=== PATIENT | male | born 1940 | race Caucasian/White ===

== ENCOUNTER 2017-02-28 23:45 | Inpatient (IN) | payer MEDICARE, OTHER ==
--- NOTE | 2017-03-01 00:02 | ER Document Report ---
ED Neuro Symptoms/Deficit - General Chief Complaint: Altered Mental Status Stated Complaint: ALTERED MENTAL STATUS Time seen by provider: 00:02 Mode of Arrival: Medic Information source: Relative, Emergency Med Personnel - HPI Patient complains to provider of: Difficulty standing, Difficulty walking, Falling, Speech Impairment Onset: Just prior to arrival Awoke with symptoms: No Symptoms are: Constant Duration: Continues in ED Baseline Cognitive: Alert, oriented X 3 Baseline Gait: Walks w/o assistance New weakness: RUE, RLE Decreased ability to stand/walk: Cannot walk Impaired speech/swallowing: Unable Similar symptoms previously: No Recently seen / treated by doctor: No Notes: Patient is a 76-year-old female who was brought to the emergency room by EMS, the initial call was reported that patient had 3 falls throughout the day today , and is now confused and unable to answer questions appropriately, however on my initial evaluation patient has expressive aphasia, and weakness in his right upper extremity and right lower extremity, he is unable to answer any questions appropriately, but his son and at bedside report that besides having 3 falls throughout the day he otherwise had a fairly normal day, he does fall on occasion so they did not think this was anything out of the ordinary for him - Related Data Allergies/Adverse Reactions: No Known Allergies Allergy (Unverified 10/30/11 11:21) Past Medical History - General Information source: Relative - Social History Smoking Status: Former Smoker Family History: Reviewed & Not Pertinent - Past Medical History Cardiac Medical History: Reports: Hx Hypertension - MEDICATED Denies: Hx Heart Attack Pulmonary Medical History: Reports: Hx Asthma Neurological Medical History: Denies: Hx Cerebrovascular Accident, Hx Seizures GI Medical History: Denies: Hx Hepatitis, Hx Hiatal Hernia, Hx Ulcer Infectious Medical History: Denies: Hx Hepatitis Past Surgical History: Reports: Hx Open Heart Surgery - CABGX2. Denies: Hx Pacemaker Review of Systems - Review of Systems -: Yes ROS unobtainable due to patient's medical condition Constitutional: No symptoms reported EENT: No symptoms reported Cardiovascular: No symptoms reported Respiratory: No symptoms reported Gastrointestinal: No symptoms reported Genitourinary: No symptoms reported Male Genitourinary: No symptoms reported Musculoskeletal: No symptoms reported Skin: No symptoms reported Hematologic/Lymphatic: No symptoms reported Neurological/Psychological: See HPI -: Yes All other systems reviewed and negative Physical Exam - Vital signs Vitals: Resp Pulse Ox 28 H 93 02/28/17 23:49 02/28/17 23:49 Interpretation: Hypertensive - General General appearance: Alert - HEENT Head: Normocephalic, Atraumatic Eyes: Normal Cornea: Normal Extraocular movements intact: Yes Eyelashes: Normal Pupils: PERRL Mucous membranes: Normal Pharynx: Normal - Respiratory Respiratory status: No respiratory distress Chest status: Nontender Breath sounds: Normal Chest palpation: Normal - Cardiovascular Rhythm: Regular, Tachycardia Heart sounds: Normal auscultation - Abdominal Inspection: Normal Distension: No distension Bowel sounds: Normal Tenderness: Nontender Organomegaly: No organomegaly - Back Back: Normal - Extremities General upper extremity: Other - Multiple ecchymosis, left elbow with small abrasions General lower extremity: Normal inspection - Neurological Cognition: Confused Endeavor Coma Scale Eye Opening: Spontaneous [place]deavor Coma Scale Verbal: Inappropriate Ka[place] Coma Scale Motor: Withdraws to Pain Endeavor Coma Scale Total: 11 Speech: Expressive aphasia Motor strength normal: No: RUE, RLE Additional motor exam normals: Pronator drift - Rectal - Skin Skin Temperature: Warm Skin Moisture: Dry Skin Color: Normal Course - Re-evaluation Re-evalutation: 03/01/17 01:29 Patient was discussed with neurologist at [facility], Dr. 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 Miramontes has accepted patient to his service, and he is first on the waiting list to get up at - Vital Signs Vital signs: Temp Pulse Resp BP Pulse Ox 79 22 H 160/79 H 92 03/01/17 02:45 03/01/17 02:45 03/01/17 02:45 03/01/17 02:45 - Laboratory Result Diagrams: 02/28/17 23:50 02/28/17 23:50 Laboratory results interpreted by me: 02/28/17 02/28/17 23:50 23:50 WBC 18.9 H RDW 14.4 H Seg Neuts % (Manual) 89 H Band Neutrophils % 2 L Lymphocytes % (Manual) 2 L Abs Neuts (Manual) 17.2 H Abs Lymphs (Manual) 0.4 L Glucose 239 H ALT 16 L Creatine Kinase 200 H - Diagnostic Test Radiology reviewed: Image reviewed, Reports reviewed - EKG Interpretation by Me EKG shows normal: Sinus rhythm Rate: Normal Rhythm: NSR Critical Care Note - Critical Care Note Total time excluding time spent on procedures (mins): 60 Comments: Patient with signs and symptoms consistent with acute CVA, requiring close observation, multiple re-evaluations, consultation with specialist at tertiary care facility and transfer to tertiary care physician Discharge - Discharge Clinical Impression: Acute CVA (cerebrovascular accident) Referrals: YESI KIMBROUGH, [Primary Care Provider] - Follow up as needed ED [employer]/Exc Criteria - Inclusion Criteria: 1: Patient presented to ED within 3 hours of acute ischemic stroke symptom onset ? -: Yes 2: Did baseline CT exclude intracranial hemorrhage and/or other risk factors? -: No 3: Is the age of the patient 18 years of age or greater? -: Yes : If any of the above questions are answered "NO" then stop, patient is not a candidate for Alteplase, : If all of the above questions are answered "YES" then continue with Exclusion Criteria. - Exclusion Criteria: 1: Is there evidence of intracranial hemorrhage on baseline CT? -: Yes 2: Is there suspicion of subarachnoid hemorrhage (even if CT negative)? 3: Is there a history of serious head trauma, recent previous stroke or VA within 3 months? 4: Does the patient have a clinical presentation consistent with VA or post-VA pericarditis? 5: Is there history of intracranial hemorrhage? 6: On repeated measurement is Systolic BP greater than 185mmHg or Diastolic BP greater that 110 mmHg and is aggressive treatment needed to reduce blood pressure to these limits (e.g. constant infusion of an anti-hypertensive)? 7: Did the patient awake with stroke symptoms? 8: Has the patient had a lumbar puncture or an arterial puncture at a non- compressile site within 7 days? 9: With in the last 14 days did the patient have surgery or major trauma? 10: Is the patient or less than 2 weeks? 11: Was there any active bleeding or acute trauma? 12: Does the patient have intracranial neoplasm, arteriovenous malformation or aneurysm? 13: Does the patient have abnormal glucose (less than 50 or greater than 400mg/ dl)? Record glucose in Comment. 14: Patient has rapidly improving symptoms at the time Alteplase is to be Administered. 15: Does the patient have any risks for bleeding, including but not limited to: a.: Current use of Coumadin with PT greater than 15 seconds or INR greater than 1.7. b.: Current use of Pradaxa (Dabigatran). c.: Heparin administereed within the past 48 hours and PTT elevated. d.: Platelet count less than 100,000/mm. e.: Major surgery or serious trauma within 14 days. f.: Gastrointestinal or gynecological urinary bleeding within 14 days. g.: Myocardial Infarction (VA) within 3 months. : If the answer to any of the above questions is "YES" then stop, the patient is not a candidate for Alteplase. : If the answer to all of the above questions is "NO" then the patient may be eligible for the Administration of Alteplase. : If the patient is noted to have seizure activity at onset of Stroke symptoms; Consult Neurologist for further evaluation. - The patient is: -: Included and is eligible to receive Alteplase. *Initiate bed placement at higher level of care* --: No Reviewd risks & benefits of thrombolytic therapy: I have reviewed the risks and benefits of thrombolytic therapy with the patient and/or his/her family. -: Excluded and not eligible to receive Alteplase for the above exclusions. -: Excluded and not eligible to receive Alteplase for other reasons (specify in comments): --: Yes - chronic appearing subdural hematoma - Diagnosis of TIA: -: Patient presented with transient symptoms that are now resolved and no other neurologic findings are currently present. List symptoms in comments. -: Patient is NOT a candidate for tPA. -: ____(put name in comment) has been consulted for admission and continued evaluation of risk factor assessment.
[2017-03-01 00:10] LABS: PARTIAL THROMBOPLASTIN TIME 29.3 SEC (23.5-35.8)
[2017-03-01 00:11] LABS: HEMATOCRIT 46.2 % (37.9-51.0); HEMOGLOBIN 15.3 g/dL (13.5-17.0); HGB HCT DIFFERENCE -0.3; MEAN CORPUSCULAR HEMOGLOBIN 27.7 pg (27.0-33.4); MEAN CORPUSCULAR HGB CONC 33.1 g/dL (32.0-36.0); MEAN CORPUSCULAR VOLUME 84 fl (80-97); RED BLOOD COUNT 5.53 10^6/uL (4.35-5.55); RED CELL DISTRIBUTION WIDTH 14.4 % (11.5-14.0); WHITE BLOOD COUNT 18.9 10^3/uL (4.0-10.5)
[2017-03-01 00:13] LABS: PROTHROMBIN TIME 13.6 SEC (11.4-15.4)
[2017-03-01 00:28] LABS: BAND NEUTROPHILS % (MANUAL) 2 % (3-5); BASOPHILS % (MANUAL) 0 % (0-2); EOSINOPHILS % (MANUAL) 1 % (0-6); LYMPHOCYTES % (MANUAL) 2 % (13-45); TOTAL CELLS COUNTED 100
[2017-03-01 00:29] LABS: RBC MORPHOLOGY COMMENT NORMO-CYTIC/CHROMIC; TOXIC GRANULATION SLIGHT; TOXIC VACUOLATION PRESENT
[2017-03-01 00:31] LABS: ALANINE AMINOTRANSFERASE 16 U/L (21-72); ALBUMIN 4.4 g/dL (3.5-5.0); ALKALINE PHOSPHATASE 87 U/L (38-126); ANION GAP 16 (5-19); ASPARTATE AMINO TRANSFERASE 28 U/L (17-59); BILIRUBIN,DIRECT 0.3 mg/dL (0.0-0.4); BILIRUBIN,TOTAL 0.8 mg/dL (0.2-1.3); BLOOD UREA NITROGEN 17 mg/dL (7-20); CALCIUM 9.9 mg/dL (8.4-10.2); CARBON DIOXIDE 22 mmol/L (22-30); CHLORIDE 104 mmol/L (98-107); CREATINE KINASE 200 U/L (55-170); CREATININE RESULT 0.99 mg/dL (0.52-1.25); GLUCOSE 239 mg/dL (75-110); POTASSIUM 4.1 mmol/L (3.6-5.0); SODIUM 141.8 mmol/L (137-145)
[2017-03-01 00:43] LABS: CREATINE KINASE MB 1.15 ng/mL (<4.55)
[2017-03-01 00:44] LABS: TROPONIN I < 0.012 ng/mL
[2017-03-01] MEDS ORDERED: ASPIRIN 81 MG TABLET, CHEWABLE PO ONE (01:26)
--- NOTE | 2017-03-01 09:43 | EKG REPORT ---
SEVERITY:- BORDERLINE ECG - SINUS RHYTHM BORDERLINE PROLONGED QT INTERVAL NONSPECIFIC T WAVE CHANGES : Confirmed by: Samuel Crowder 01-Mar-2017 09:42:22
[2017-03-01] MEDS ORDERED: NORMAL SALINE 1000 ML 1,000 ML IV ONE (11:11)
[2017-03-01 11:25] LABS: APPEARANCE,URINE CLEAR; BILIRUBIN,URINE NEGATIVE (NEGATIVE); GLUCOSE, URINE 50 mg/dL (NEGATIVE); KETONES,URINE TRACE mg/dL (NEGATIVE); LEUKOCYTE ESTERASE,URINE NEGATIVE (NEGATIVE); NITRITE,URINE NEGATIVE (NEGATIVE); PROTEIN,URINE 30 mg/dL (NEGATIVE); UROBILINOGEN,URINE NEGATIVE mg/dL (<2.0)
[2017-03-01] MEDS ORDERED: ONDANSETRON HCL INJ/PF 4 MG/2 ML SDV IV PRN (12:12)
[2017-03-01] MEDS ORDERED: NORMAL SALINE 1000 ML 1,000 ML IV PRN (12:12)
[2017-03-01] MEDS ORDERED: ONDANSETRON 4 MG TAB.RAPDIS PO PRN (12:12)
[2017-03-01] MEDS ORDERED: GLUCAGON,HUMAN RECOMB 1 MG INJ IM PRN (12:22)
[2017-03-01] MEDS ORDERED: DEXTROSE 40% GEL 15 GM TUBE PO PRN ×2 (12:22)
[2017-03-01] MEDS ORDERED: DEXTROSE 50%-WATER 25 GM/50 ML DISP.SYRIN IV PRN ×2 (12:22)
[2017-03-01] MEDS ORDERED: (PENDING PHARMACY ID) (Rosuvastatin Calcium [Crestor 20 Mg Tablet] 20 MG) PO SCH (12:30)
--- NOTE | 2017-03-01 12:50 | PDOC H&P ---
History of Present Illness Admission Date/PCP: 03/01/17 12:05 YESI KIMBROUGH DO Patient complains of: falling and right-sided weakness. History of Present Illness: JANIE BRYSON is a 76 year old male with history of coronary artery disease and hypertension who presented after having several falls. The patient is Parkinson 's disease and difficulty ambulating and he fell 3 times yesterday. The patient 's brought him into the hospital via EMS when he was having problems with right-sided weakness after the third fall. The patient had a head CT and there was concern that this represented a subdural hematoma and the patient was going to be transferred to [facility]. No beds were available items so the patient had an MRI here and it showed no evidence for subdural bleeding however did show an acute ischemic CVA. The patient has expressive aphasia and right-sided weakness. He is unable to answer any questions for me. He is unable to move his right side at all. Patient's son is at the bedside and gives the history for the patient. Past Medical History Cardiac Medical History: Reports: Coronary Artery Disease, Hyperlipidema, Hypertension - MEDICATED Denies: Myocardial Infarction Pulmonary Medical History: Reports: Asthma, Chronic Obstructive Pulmonary Disease (COPD) EENT Medical History: Reports: Cataracts Neurological Medical History: Reports: Other - Parkinson's disease Denies: Seizures Endocrine Medical History: Reports: Diabetes Mellitus Type 2 Renal/ Medical History: Reports: None Malignancy Medical History: Reports: Other - Prostate cancer status post radiation therapy. GI Medical History: Denies: Hepatitis, Hiatal Hernia Hematology: Reports: None Denies: Anemia, Sickle Cell Disease Infectious Medical History: Reports: None Past Surgical History Past Surgical History: Reports: Coronary Artery Bypass Graft Denies: Pacemaker Social History Information Source: Relative Lives with: Spouse/Significant other Smoking Status: Former Smoker Frequency of Alcohol Use: None Hx Recreational Drug Use: No Drugs: None Family History Family History: No history of coronary artery disease Parental Family History Reviewed: Yes Children Family History Reviewed: No Sibling(s) Family History Reviewed.: No Medication/Allergy Home Medications: Amitriptyline HCl [Elavil 10 Mg Tablet] 10 mg PO BID 03/01/17 Carbidopa/Levodopa [Sinemet 25-100 mg Tablet] 1 tab PO TID 03/01/17 Gemfibrozil [Lopid 600 mg Tablet] 600 mg PO BIDBS 03/01/17 Glimepiride [Amaryl] 4 mg PO BIDBS 03/01/17 Metformin HCl [Glucophage] 1,000 mg PO BIDBS 03/01/17 Rosuvastatin Calcium [Crestor 20 mg Tablet] 20 mg PO SUWEFR 03/01/17 Sitagliptin Phosphate [Januvia] 100 mg PO DAILY 03/01/17 Tolterodine Tartrate [Detrol La] 4 mg PO DAILY 03/01/17 Allergies/Adverse Reactions: No Known Allergies Allergy (Verified 03/01/17 10:37) Review of Systems ROS unobtainable: Due to mental status Physical Exam Vital Signs: Temp Pulse Resp BP Pulse Ox 97.6 F 86 20 174/48 H 93 03/01/17 09:31 03/01/17 09:32 03/01/17 12:00 03/01/17 11:34 03/01/17 12:00 General appearance: PRESENT: no acute distress Head exam: PRESENT: atraumatic, normocephalic Eye exam: PRESENT: conjunctiva pink, EOMI, PERRLA. ABSENT: scleral icterus Ear exam: PRESENT: normal external ear exam Mouth exam: PRESENT: moist, tongue midline Neck exam: ABSENT: carotid bruit, JVD, lymphadenopathy, thyromegaly Respiratory exam: PRESENT: clear to auscultation jim. ABSENT: rales, rhonchi, wheezes Cardiovascular exam: PRESENT: RRR. ABSENT: diastolic murmur, rubs, systolic murmur Pulses: PRESENT: normal dorsalis pedis pul Vascular exam: PRESENT: normal capillary refill GI/Abdominal exam: PRESENT: normal bowel sounds, soft. ABSENT: distended, guarding, mass, organolmegaly, rebound, tenderness Rectal exam: PRESENT: deferred Extremities exam: ABSENT: calf tenderness, clubbing, pedal edema Neurological exam: PRESENT: altered, aphasic, other - Patient's right upper and lower extremity are flaccid. He has expressive aphasia. He will follow commands. He does appear to have right-sided neglect. Psychiatric exam: PRESENT: flat affect Skin exam: PRESENT: dry, intact, warm. ABSENT: cyanosis, rash Results Impressions: Head CT 02/28/17 23:49 IMPRESSION: 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 Consider MRI correlation. Chest X-Ray 02/28/17 23:57 IMPRESSION: Small bibasilar atelectasis or scar. Brain MRI with MRA 03/01/17 04:29 IMPRESSION: No MR evidence of pathologic subdural collection. Prominent sulci and sylvian fissures, over the bifrontal and biparietal regions. Early subacute infarct in the left hemisphere, watershed distribution with minimal surface petechial staining. Unremarkable [place]. Findings discussed with Dr. Potts in the emergency room Head MRI 03/01/17 04:29 IMPRESSION: No MR evidence of pathologic subdural collection. Prominent sulci and sylvian fissures, over the bifrontal and biparietal regions. Early subacute infarct in the left hemisphere, watershed distribution with minimal surface petechial staining. Unremarkable [place]. Findings discussed with Dr. Potts in the emergency room Assessment & Plan - Diagnosis (1) Acute CVA (cerebrovascular accident) Is this a current diagnosis for this admission?: YesPlan: A she was initially thought to have a subdural bleed on CT scan. MRI shows this to be an acute CVA. Patient will be admitted and start physical and occupational therapy. Will obtain echocardiogram and carotid Dopplers evaluation. Patient will be started on aspirin. Patient according to the son has been on blood thinners because of history of DVT. The will be bringing the med list with her. He most likely will need long-term rehabilitation given his right-sided hemiparesis. (2) DVT (deep venous thrombosis) Is this a current diagnosis for this admission?: YesPlan: Patient has a history of DVT and cortisone has been on blood thinner. He has normal coagulation studies and awaiting to find out what he does take for blood thinner. (3) COPD (chronic obstructive pulmonary disease) Is this a current diagnosis for this admission?: YesPlan: We'll give nebulizers as needed. (4) Parkinsons disease Is this a current diagnosis for this admission?: Yes (5) Hypertension Is this a current diagnosis for this admission?: Yes (6) Diabetes mellitus Is this a current diagnosis for this admission?: YesPlan: We'll hold the oral agents and cover with sliding scale insulin. (7) Coronary artery disease Is this a current diagnosis for this admission?: Yes (8) Melanoma Is this a current diagnosis for this admission?: YesPlan: he has a history of melanoma and has had a large excision on his left forearm. (9) Prostate cancer Is this a current diagnosis for this admission?: YesPlan: Patient has a history of having radiation therapy. - Time Time Spent: 50 to 70 Minutes - Inpatient Certification Medical Necessity: Need for Neurological Checks
[2017-03-01] MEDS ORDERED: SITAGLIPTIN PHOSPHATE 50 MG TABLET PO ONE (15:00)
[2017-03-01] MEDS: CARBIDOPA/LEVODOPA 25-100 MG TABLET PO SCH ×2 (15:04→22:11)
[2017-03-01] MEDS: GEMFIBROZIL 600 MG TABLET PO SCH (18:30)
[2017-03-01] MEDS: TOLTERODINE TARTRATE 1 MG TABLET PO SCH (18:30)
--- NOTE | 2017-03-01 19:34 | XCELERA REPORT ---
[address] [address] Transthoracic Echocardiogram Report Name: JANIE BRYSON Age: 76 yrs Gender: Male : 1940 Patient Status: Inpatient Patient Location: [id number]\S\315\S\A Study Date: 03/01/2017 02:03 PM Procedure: A complete two-dimensional transthoracic echocardiogram was performed (2D, M-mode, spectral and color flow Doppler). The study was technically difficult with many images being suboptimal in quality. Reason For Study: acute cva Ordering Physician: FADY AHUMADA Performed By: Gregg Khoury Interpretation Summary The study was technically difficult with many images being suboptimal in quality. The left ventricular ejection fraction is within normal limits. There is mild concentric left ventricular hypertrophy. Doppler measurements suggest pseudonormalized left ventricular relaxation, which is associated with grade II/IV or mild to moderate diastolic dysfunction The left ventricle is grossly normal size. Regional wall motion abnormalities cannot be excluded due to limited visualization. The right ventricle is grossly normal size. The right ventricular systolic function is normal. The left atrial size is normal. The right atrium is normal. There is a trace amount of mitral regurgitation There is no mitral valve stenosis. There is no aortic valve stenosis No aortic regurgitation is present. There is a trace or physiologic amount of tricuspid regurgitation Tricuspid regurgitation jet envelope not well defined to measure RV systolic pressure accurately. The aortic root is not well visualized. The inferior vena cava was not well visualized There is no pericardial effusion. No definite cardiac source of CVA/TIA noted on this particular trans- thoracic study. Consider SHAILESH if clinically indicated. May consider mobile cardiac telemetry monitoring (MCT) for ruling out transient AFIB. MMode/2D Measurements \T\ Calculations RVDd: 2.3 cm LVIDd: 5.2 cm FS: 31.8 % Ao root diam: 3.4 cm IVSd: 0.95 cm LVIDs: 3.6 cm EDV(Teich): 130.8 ml Ao root area: 9.3 cm2 LVPWd: 1.0 cm ESV(Teich): 53.0 ml LA dimension: 4.0 cm EF(Teich): 59.5 % Doppler Measurements \T\ Calculations MV E max anthony: MV P1/2t max anthony: Ao V2 max: LV V1 max P.0 cm/sec 55.1 cm/sec 91.1 cm/sec 1.8 mmHg MV A max anthony: MV P1/2t: 57.5 msec Ao max PG: LV V1 max: 79.8 cm/sec MVA(P1/2t): 3.8 cm2 3.3 mmHg 66.3 cm/sec MV E/A: 0.68 MV dec slope: 280.8 cm/sec2 PA V2 max: TR max anthony: RAP systole: 64.7 cm/sec 222.1 cm/sec 10.0 mmHg PA max PG: TR max P.8 mmHg 1.7 mmHg RVSP(TR): 29.8 mmHg Left Ventricle The left ventricle is grossly normal size. There is mild concentric left ventricular hypertrophy. The left ventricular ejection fraction is within normal limits. Doppler measurements suggest pseudonormalized left ventricular relaxation, which is associated with grade II/IV or mild to moderate diastolic dysfunction. Regional wall motion abnormalities cannot be excluded due to limited visualization. Right Ventricle The right ventricle is grossly normal size. The right ventricular systolic function is normal. Atria The right atrium is normal. The left atrial size is normal. Interarterial septum not well visualized and not well dopplered. Cannot comment on ASD/PFO presence. Mitral Valve The mitral valve leaflets are sclerotic, but show no functional abnormalities. There is no mitral valve stenosis. There is a trace amount of mitral regurgitation. Aortic Valve The aortic valve is not well visualized secondary to technical limitations. There is no aortic valve stenosis. No aortic regurgitation is present. Tricuspid Valve The tricuspid valve is not well visualized, but is grossly normal. There is no tricuspid stenosis. There is a trace or physiologic amount of tricuspid regurgitation. Tricuspid regurgitation jet envelope not well defined to measure RV systolic pressure accurately. Pulmonic Valve The pulmonic valve is not well visualized. Great Vessels The aortic root is not well visualized. The inferior vena cava was not well visualized. Effusions There is no pericardial effusion. Incidental Findings No definite cardiac source of CVA/TIA noted on this particular trans- thoracic study. Consider SHAILESH if clinically indicated. May consider mobile cardiac telemetry monitoring (MCT) for ruling out transient AFIB. : FADY AHUMADA > Samuel Crowder
[2017-03-01] MEDS: AMITRIPTYLINE HCL 10 MG TABLET PO SCH (22:11)
[2017-03-01] MEDS: FAMOTIDINE INJ/PF 20 MG/2 ML SDV IV SCH (22:12)
[2017-03-01] MEDS: ATORVASTATIN CALCIUM 20 MG TABLET PO SCH (22:12)
[2017-03-02 05:08] LABS: HEMATOCRIT 42.1 % (37.9-51.0); HEMOGLOBIN 13.9 g/dL (13.5-17.0); HGB HCT DIFFERENCE -0.4; MEAN CORPUSCULAR HEMOGLOBIN 27.6 pg (27.0-33.4); MEAN CORPUSCULAR VOLUME 84 fl (80-97); RED BLOOD COUNT 5.03 10^6/uL (4.35-5.55); RED CELL DISTRIBUTION WIDTH 14.2 % (11.5-14.0); WHITE BLOOD COUNT 9.3 10^3/uL (4.0-10.5)
[2017-03-02 05:14] LABS: PROTHROMBIN TIME 14.3 SEC (11.4-15.4)
[2017-03-02 05:26] LABS: ANION GAP 13 (5-19); BLOOD UREA NITROGEN 14 mg/dL (7-20); CALCIUM 9.3 mg/dL (8.4-10.2); CARBON DIOXIDE 20 mmol/L (22-30); CHLORIDE 110 mmol/L (98-107); CREATININE RESULT 0.85 mg/dL (0.52-1.25); GLUCOSE 153 mg/dL (75-110); SODIUM 143.3 mmol/L (137-145)
[2017-03-02] MEDS: CARBIDOPA/LEVODOPA 25-100 MG TABLET PO SCH ×3 (05:50→22:20)
[2017-03-02] MEDS: TOLTERODINE TARTRATE 1 MG TABLET PO SCH ×2 (05:50→17:58)
[2017-03-02] MEDS ORDERED: (PENDING PHARMACY ID) (Warfarin Sodium 4 MG) PO SCH (07:45)
[2017-03-02] MEDS ORDERED: (PENDING PHARMACY ID) (Tolterodine Tartrate [Detrol La] 4 MG) PO SCH (10:00)
[2017-03-02] MEDS: ACETAMINOPHEN 650 MG SUPP.RECT PR PRN ×2 (10:01→22:12)
[2017-03-02] MEDS: GEMFIBROZIL 600 MG TABLET PO SCH ×2 (10:08→17:59)
[2017-03-02] MEDS: AMITRIPTYLINE HCL 10 MG TABLET PO SCH ×2 (10:08→22:20)
[2017-03-02] MEDS: FAMOTIDINE INJ/PF 20 MG/2 ML SDV IV SCH ×2 (10:09→22:20)
[2017-03-02] MEDS: ASPIRIN 81 MG TABLET, ENT COATED PO SCH (10:09)
[2017-03-02] MEDS: SITAGLIPTIN PHOSPHATE 50 MG TABLET PO SCH (10:19)
--- NOTE | 2017-03-02 10:23 | PDOC PROGRESS REPORT ---
Subjective Progress Note for:: 03/02/17 Subjective:: Patient has some improvement in his expressive aphasia. Physical Exam Vital Signs: Temp Pulse Resp BP Pulse Ox 98.4 F 85 20 163/80 H 95 03/02/17 07:27 03/02/17 07:27 03/02/17 07:27 03/02/17 07:27 03/02/17 07:27 Intake & Output 03/01/17 03/02/17 03/03/17 06:59 06:59 06:59 Intake Total 1950 Balance 1950 Weight 81.3 kg General appearance: PRESENT: no acute distress Eye exam: PRESENT: conjunctiva pink. ABSENT: scleral icterus Mouth exam: PRESENT: moist, tongue midline Neck exam: ABSENT: JVD Respiratory exam: PRESENT: clear to auscultation jim. ABSENT: rales, rhonchi, wheezes Cardiovascular exam: PRESENT: RRR. ABSENT: diastolic murmur, rubs, systolic murmur GI/Abdominal exam: PRESENT: normal bowel sounds, soft. ABSENT: distended, guarding, mass, organolmegaly, rebound, tenderness Extremities exam: ABSENT: calf tenderness, clubbing, pedal edema Neurological exam: PRESENT: alert, awake, oriented to person, oriented to place , oriented to time, oriented to situation, CN II-XII grossly intact, motor sensory deficit - Right-sided hemiparesis with expressive aphasia. 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 Consider MRI correlation. Chest X-Ray 02/28/17 23:57 IMPRESSION: Small bibasilar atelectasis or scar. Brain MRI with MRA 03/01/17 04:29 IMPRESSION: No MR evidence of pathologic subdural collection. Prominent sulci and sylvian fissures, over the bifrontal and biparietal regions. Early subacute infarct in the left hemisphere, watershed distribution with minimal surface petechial staining. Unremarkable [place] [facility] [place]. Findings discussed with Dr. Potts in the emergency room Carotid Doppler Study 03/01/17 04:29 IMPRESSION: NO HEMODYNAMICALLY SIGNIFICANT STENOSIS OF THE PROXIMAL RIGHT OR LEFT INTERNAL CAROTID ARTERIES. ANTEGRADE BILATERAL PULSATILE VERTEBRAL ARTERY FLOW. Head MRI 03/01/17 04:29 IMPRESSION: No MR evidence of pathologic subdural collection. Prominent sulci and sylvian fissures, over the bifrontal and biparietal regions. Early subacute infarct in the left hemisphere, watershed distribution with minimal surface petechial staining. Unremarkable [place] [facility] [place]. Findings discussed with Dr. Potts in the emergency room Assessment & Plan - Diagnosis (1) Acute CVA (cerebrovascular accident) Is this a current diagnosis for this admission?: YesPlan: Patient has acute CVA. We'll continue PT and OT and speech therapy for right- sided hemiparesis with expressive aphasia. He will most likely need rehabilitation at a long term facility. (2) DVT (deep venous thrombosis) Is this a current diagnosis for this admission?: YesPlan: Patient has a history of DVT and has been on Coumadin. Will restart the Coumadin and Lovenox until he is therapeutic. (3) COPD (chronic obstructive pulmonary disease) Is this a current diagnosis for this admission?: YesPlan: We'll give nebulizers as needed. (4) Parkinsons disease Is this a current diagnosis for this admission?: Yes (5) Hypertension Is this a current diagnosis for this admission?: Yes (6) Diabetes mellitus Is this a current diagnosis for this admission?: YesPlan: We'll hold the oral agents and cover with sliding scale insulin. (7) Coronary artery disease Is this a current diagnosis for this admission?: Yes (8) Melanoma Is this a current diagnosis for this admission?: YesPlan: he has a history of melanoma and has had a large excision on his left forearm. (9) Prostate cancer Is this a current diagnosis for this admission?: YesPlan: Patient has a history of having radiation therapy. - Time Time Spent with patient: 25-34 minutes - Inpatient Certification Medical Necessity: Need for Neurological Checks
[2017-03-02] MEDS ORDERED: IPRATROPIUM/ALBUTEROL 0.5-2.5 MG/3 ML AMPUL NEB PRN (10:56)
[2017-03-02] MEDS ORDERED: ENOXAPARIN SODIUM INJ 40 MG/0.4 ML DISP.SYRIN SUBCUT ONE (11:00)
[2017-03-02] MEDS ORDERED: FUROSEMIDE INJ/PF 20 MG/2 ML SDV IV ONE (11:00)
[2017-03-02] MEDS: INSULIN LISPRO 100 UNIT/ML 3 ML VIAL SUBCUT PRN ×2 (12:41→18:02)
[2017-03-02] MEDS ORDERED: WARFARIN SODIUM 4 MG TABLET PO SCH (22:00)
[2017-03-02] MEDS: INSULIN GLARGINE,HUM.REC.ANLOG 300 UNIT/3 ML INSULN.PEN SUBCUT SCH (22:19)
[2017-03-02] MEDS: ATORVASTATIN CALCIUM 20 MG TABLET PO SCH (22:20)
[2017-03-03] MEDS: CARBIDOPA/LEVODOPA 25-100 MG TABLET PO SCH ×3 (05:00→21:31)
[2017-03-03] MEDS: TOLTERODINE TARTRATE 1 MG TABLET PO SCH ×2 (05:00→18:27)
[2017-03-03 05:04] LABS: ABSOLUTE BASOPHILS # (AUTO) 0.1 10^3/uL (0.0-0.2); ABSOLUTE EOSINOPHILS # (AUTO) 0.4 10^3/uL (0.0-0.6); ABSOLUTE LYMPHOCYTES (AUTO) 1.3 10^3/uL (0.5-4.7); ABSOLUTE MONOCYTES (AUTO) 0.7 10^3/uL (0.1-1.4); ABSOLUTE NEUT (AUTO) 7.9 10^3/uL (1.7-8.2); BASOPHILS % (AUTO) 1.4 % (0-2); EOSINOPHILS % (AUTO) 3.4 % (0-6); HEMATOCRIT 44.6 % (37.9-51.0); HEMOGLOBIN 15.1 g/dL (13.5-17.0); HGB HCT DIFFERENCE 0.7; LYMPHOCYTES % (AUTO) 12.5 % (13-45); MEAN CORPUSCULAR HEMOGLOBIN 27.9 pg (27.0-33.4); MEAN CORPUSCULAR HGB CONC 33.8 g/dL (32.0-36.0); MEAN CORPUSCULAR VOLUME 83 fl (80-97); MONOCYTES % (AUTO) 6.6 % (3-13); RED BLOOD COUNT 5.41 10^6/uL (4.35-5.55); RED CELL DISTRIBUTION WIDTH 13.7 % (11.5-14.0); SEGMENTED NEUTROPHILS % (AUTO) 76.1 % (42-78); WHITE BLOOD COUNT 10.3 10^3/uL (4.0-10.5)
[2017-03-03 05:30] LABS: PROTHROMBIN TIME 14.3 SEC (11.4-15.4)
[2017-03-03 05:32] LABS: ANION GAP 16 (5-19); BLOOD UREA NITROGEN 15 mg/dL (7-20); CALCIUM 9.9 mg/dL (8.4-10.2); CARBON DIOXIDE 22 mmol/L (22-30); CHLORIDE 104 mmol/L (98-107); CREATININE RESULT 0.95 mg/dL (0.52-1.25); GLUCOSE 153 mg/dL (75-110); POTASSIUM 3.9 mmol/L (3.6-5.0); SODIUM 142.2 mmol/L (137-145)
[2017-03-03] MEDS ORDERED: (PENDING PHARMACY ID) (Warfarin Sodium 2 MG) PO SCH (07:38)
[2017-03-03] MEDS: GEMFIBROZIL 600 MG TABLET PO SCH ×2 (08:44→18:27)
[2017-03-03] MEDS: ENOXAPARIN SODIUM INJ 40 MG/0.4 ML DISP.SYRIN SUBCUT SCH (08:46)
[2017-03-03] MEDS: FAMOTIDINE INJ/PF 20 MG/2 ML SDV IV SCH ×2 (10:02→21:30)
[2017-03-03] MEDS: ASPIRIN 81 MG TABLET, ENT COATED PO SCH (10:02)
[2017-03-03] MEDS: SITAGLIPTIN PHOSPHATE 50 MG TABLET PO SCH (10:03)
[2017-03-03] MEDS: AMITRIPTYLINE HCL 10 MG TABLET PO SCH ×2 (10:03→21:31)
--- NOTE | 2017-03-03 11:32 | PDOC PROGRESS REPORT ---
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 Physical Exam Vital Signs: Temp Pulse Resp BP Pulse Ox 97.6 F 79 20 146/79 H 96 03/03/17 09:02 03/03/17 09:02 03/03/17 09:02 03/03/17 09:02 03/03/17 09:02 Intake & Output 03/02/17 03/03/17 03/04/17 06:59 06:59 06:59 Intake Total 1950 645 Balance 1950 645 Weight 81.3 kg 79.1 kg General appearance: PRESENT: no acute distress Eye exam: PRESENT: conjunctiva pink. ABSENT: scleral icterus Mouth exam: PRESENT: moist, tongue midline Neck exam: ABSENT: JVD Respiratory exam: PRESENT: clear to auscultation jim. ABSENT: rales, rhonchi, wheezes Cardiovascular exam: PRESENT: RRR. ABSENT: diastolic murmur, rubs, systolic murmur Pulses: PRESENT: normal dorsalis pedis pul GI/Abdominal exam: PRESENT: normal bowel sounds, soft. ABSENT: distended, guarding, mass, organolmegaly, rebound, tenderness Extremities exam: ABSENT: calf tenderness, clubbing, pedal edema Neurological exam: PRESENT: alert, awake, oriented to person, oriented to place , oriented to time, oriented to situation, motor sensory deficit - Right-sided weakness with one out of 5 strength. Psychiatric exam: PRESENT: appropriate affect Skin exam: PRESENT: dry, intact, warm. ABSENT: cyanosis, rash Results Laboratory Results: 03/03/17 04:22 03/03/17 04:22 03/03/17 03/03/17 04:22 04:22 WBC 10.3 RBC 5.41 Hgb 15.1 Hct 44.6 MCV 83 MCH 27.9 MCHC 33.8 RDW 13.7 Plt Count 261 Seg Neutrophils % 76.1 Lymphocytes % 12.5 L Monocytes % 6.6 Eosinophils % 3.4 Basophils % 1.4 Absolute Neutrophils 7.9 Absolute Lymphocytes 1.3 Absolute Monocytes 0.7 Absolute Eosinophils 0.4 Absolute Basophils 0.1 Sodium 142.2 Potassium 3.9 Chloride 104 Carbon Dioxide 22 Anion Gap 16 BUN 15 Creatinine 0.95 Est GFR ( Amer) > 60 Est GFR (Non-Af Amer) > 60 Glucose 153 H Calcium 9.9 Impressions: Head CT 02/28/17 23:49 IMPRESSION: 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 Consider MRI correlation. Chest X-Ray 02/28/17 23:57 IMPRESSION: Small bibasilar atelectasis or scar. Brain MRI with MRA 03/01/17 04:29 IMPRESSION: No MR evidence of pathologic subdural collection. Prominent sulci and sylvian fissures, over the bifrontal and biparietal regions. Early subacute infarct in the left hemisphere, watershed distribution with minimal surface petechial staining. Unremarkable [place] [facility] [place]. Findings discussed with Dr. Potts in the emergency room Carotid Doppler Study 03/01/17 04:29 IMPRESSION: NO HEMODYNAMICALLY SIGNIFICANT STENOSIS OF THE PROXIMAL RIGHT OR LEFT INTERNAL CAROTID ARTERIES. ANTEGRADE BILATERAL PULSATILE VERTEBRAL ARTERY FLOW. Head MRI 03/01/17 04:29 IMPRESSION: No MR evidence of pathologic subdural collection. Prominent sulci and sylvian fissures, over the bifrontal and biparietal regions. Early subacute infarct in the left hemisphere, watershed distribution with minimal surface petechial staining. Unremarkable [place] [facility] [place]. Findings discussed with Dr. Potts in the emergency room Assessment & Plan - Diagnosis (1) Acute CVA (cerebrovascular accident) Is this a current diagnosis for this admission?: YesPlan: Patient has acute CVA. We'll continue PT and OT and speech therapy for right- sided hemiparesis with expressive aphasia. He will most likely need rehabilitation at a custodial facility. (2) DVT (deep venous thrombosis) Is this a current diagnosis for this admission?: YesPlan: Patient has a history of DVT and has been on Coumadin. Will restart the Coumadin and Lovenox until he is therapeutic. (3) COPD (chronic obstructive pulmonary disease) Is this a current diagnosis for this admission?: YesPlan: We'll give nebulizers as needed. (4) Parkinsons disease Is this a current diagnosis for this admission?: YesPlan: Continue with Sinemet. (5) Hypertension Is this a current diagnosis for this admission?: YesPlan: Stable (6) Diabetes mellitus Is this a current diagnosis for this admission?: YesPlan: We'll hold the oral agents and cover with sliding scale insulin. (7) Coronary artery disease Is this a current diagnosis for this admission?: YesPlan: Denies any chest pain. (8) Melanoma Is this a current diagnosis for this admission?: YesPlan: he has a history of melanoma and has had a large excision on his left forearm. (9) Prostate cancer Is this a current diagnosis for this admission?: YesPlan: Patient has a history of having radiation therapy. - Time Time Spent with patient: 25-34 minutes - Inpatient Certification Medical Necessity: Need for Neurological Checks - Plan Summary Plan Summary: We'll plan on transferring to custodial facility for rehabilitation when a bed is available.
[2017-03-03] MEDS: INSULIN LISPRO 100 UNIT/ML 3 ML VIAL SUBCUT PRN ×2 (12:14→18:27)
[2017-03-03] MEDS: ACETAMINOPHEN 650 MG SUPP.RECT PR PRN (12:39)
[2017-03-03] MEDS: INSULIN GLARGINE,HUM.REC.ANLOG 300 UNIT/3 ML INSULN.PEN SUBCUT SCH (21:29)
[2017-03-03] MEDS: ATORVASTATIN CALCIUM 20 MG TABLET PO SCH (21:31)
[2017-03-03] MEDS ORDERED: WARFARIN SODIUM 2 MG TABLET PO SCH (22:00)
[2017-03-04] MEDS: ACETAMINOPHEN 650 MG SUPP.RECT PR PRN (00:34)
[2017-03-04 05:13] LABS: HEMATOCRIT 44.3 % (37.9-51.0); HGB HCT DIFFERENCE 0.7; MEAN CORPUSCULAR HEMOGLOBIN 27.9 pg (27.0-33.4); MEAN CORPUSCULAR HGB CONC 33.8 g/dL (32.0-36.0); MEAN CORPUSCULAR VOLUME 83 fl (80-97); RED BLOOD COUNT 5.36 10^6/uL (4.35-5.55); RED CELL DISTRIBUTION WIDTH 14.1 % (11.5-14.0); WHITE BLOOD COUNT 8.5 10^3/uL (4.0-10.5)
[2017-03-04 05:19] LABS: PROTHROMBIN TIME 16.9 SEC (11.4-15.4)
[2017-03-04] MEDS: CARBIDOPA/LEVODOPA 25-100 MG TABLET PO SCH ×3 (05:30→21:32)
[2017-03-04] MEDS: TOLTERODINE TARTRATE 1 MG TABLET PO SCH ×2 (05:30→17:17)
[2017-03-04 05:34] LABS: ANION GAP 15 (5-19); BLOOD UREA NITROGEN 22 mg/dL (7-20); CARBON DIOXIDE 23 mmol/L (22-30); CHLORIDE 105 mmol/L (98-107); CREATININE RESULT 1.07 mg/dL (0.52-1.25); GLUCOSE 202 mg/dL (75-110); POTASSIUM 3.9 mmol/L (3.6-5.0); SODIUM 142.7 mmol/L (137-145)
[2017-03-04] MEDS: ASPIRIN 81 MG TABLET, ENT COATED PO SCH (09:10)
[2017-03-04] MEDS: SITAGLIPTIN PHOSPHATE 50 MG TABLET PO SCH (09:10)
[2017-03-04] MEDS: FAMOTIDINE INJ/PF 20 MG/2 ML SDV IV SCH ×2 (09:11→21:32)
[2017-03-04] MEDS: AMITRIPTYLINE HCL 10 MG TABLET PO SCH ×2 (09:12→21:32)
[2017-03-04] MEDS: GEMFIBROZIL 600 MG TABLET PO SCH ×2 (09:12→17:18)
[2017-03-04] MEDS: ENOXAPARIN SODIUM INJ 40 MG/0.4 ML DISP.SYRIN SUBCUT SCH (09:13)
--- NOTE | 2017-03-04 09:49 | PDOC PROGRESS REPORT ---
Subjective Progress Note for:: 03/04/17 Subjective:: Patient is able to speak much clearer now. Strength is improving on the right. Physical Exam Vital Signs: Temp Pulse Resp BP Pulse Ox 98.2 F 71 16 158/77 H 95 03/04/17 07:40 03/04/17 07:40 03/04/17 07:40 03/04/17 07:40 03/04/17 09:24 Intake & Output 03/03/17 03/04/17 03/05/17 06:59 06:59 06:59 Intake Total 645 455 Balance 645 455 Weight 79.1 kg 78.8 kg General appearance: PRESENT: no acute distress Eye exam: PRESENT: conjunctiva pink. ABSENT: scleral icterus Ear exam: PRESENT: normal external ear exam Mouth exam: PRESENT: moist, tongue midline Neck exam: ABSENT: JVD Respiratory exam: PRESENT: clear to auscultation jim. ABSENT: rales, rhonchi, wheezes Cardiovascular exam: PRESENT: RRR. ABSENT: diastolic murmur, rubs, systolic murmur GI/Abdominal exam: PRESENT: normal bowel sounds, soft. ABSENT: distended, guarding, mass, organolmegaly, rebound, tenderness Extremities exam: ABSENT: calf tenderness, clubbing, pedal edema Neurological exam: PRESENT: alert, awake, oriented to person, oriented to place , motor sensory deficit - Strength is 3 out of 5 on the right upper and lower extremity. Still with some mild expressive aphasia.. ABSENT: oriented to time , oriented to situation Psychiatric exam: PRESENT: flat affect Skin exam: PRESENT: dry, intact, warm. 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 Consider MRI correlation. Chest X-Ray 02/28/17 23:57 IMPRESSION: Small bibasilar atelectasis or scar. Brain MRI with MRA 03/01/17 04:29 IMPRESSION: No MR evidence of pathologic subdural collection. Prominent sulci and sylvian fissures, over the bifrontal and biparietal regions. Early subacute infarct in the left hemisphere, watershed distribution with minimal surface petechial staining. Unremarkable [place] [facility] [place]. Findings discussed with Dr. Potts in the emergency room Carotid Doppler Study 03/01/17 04:29 IMPRESSION: NO HEMODYNAMICALLY SIGNIFICANT STENOSIS OF THE PROXIMAL RIGHT OR LEFT INTERNAL CAROTID ARTERIES. ANTEGRADE BILATERAL PULSATILE VERTEBRAL ARTERY FLOW. Head MRI 03/01/17 04:29 IMPRESSION: No MR evidence of pathologic subdural collection. Prominent sulci and sylvian fissures, over the bifrontal and biparietal regions. Early subacute infarct in the left hemisphere, watershed distribution with minimal surface petechial staining. Unremarkable [place] [facility] [place]. Findings discussed with Dr. Potts in the emergency room Assessment & Plan - Diagnosis (1) Acute CVA (cerebrovascular accident) Is this a current diagnosis for this admission?: YesPlan: Patient has acute CVA. We'll continue PT and OT and speech therapy for right- sided hemiparesis with expressive aphasia. We'll plan on transfer to alf facility for rehabilitation when a bed is available. (2) DVT (deep venous thrombosis) Is this a current diagnosis for this admission?: YesPlan: Patient has a history of DVT and has been on Coumadin. Will stop the Coumadin and start on Xarelto. (3) COPD (chronic obstructive pulmonary disease) Is this a current diagnosis for this admission?: YesPlan: We'll give nebulizers as needed. (4) Parkinsons disease Is this a current diagnosis for this admission?: YesPlan: Continue with Sinemet. (5) Hypertension Is this a current diagnosis for this admission?: YesPlan: Stable (6) Diabetes mellitus Is this a current diagnosis for this admission?: YesPlan: We'll hold the oral agents and cover with sliding scale insulin. (7) Coronary artery disease Is this a current diagnosis for this admission?: YesPlan: Denies any chest pain. (8) Melanoma Is this a current diagnosis for this admission?: YesPlan: he has a history of melanoma and has had a large excision on his left forearm. (9) Prostate cancer Is this a current diagnosis for this admission?: YesPlan: Patient has a history of having radiation therapy. - Time Time Spent with patient: 25-34 minutes - Inpatient Certification Medical Necessity: Need Close Monitoring Due to Risk of Patient Decompensation - Plan Summary Plan Summary: We'll plan on discharge to alf facility for rehabilitation when a bed becomes available.
[2017-03-04] MEDS ORDERED: RIVAROXABAN 10 MG TABLET PO SCH (17:00)
[2017-03-04] MEDS: ATORVASTATIN CALCIUM 20 MG TABLET PO SCH (21:32)
[2017-03-04] MEDS: INSULIN GLARGINE,HUM.REC.ANLOG 300 UNIT/3 ML INSULN.PEN SUBCUT SCH (21:32)
[2017-03-05] MEDS: ACETAMINOPHEN 650 MG SUPP.RECT PR PRN (01:28)
[2017-03-05] MEDS ORDERED: ACETAMINOPHEN 650 MG SUPP.RECT PR PRN (01:46)
[2017-03-05 05:01] LABS: ABSOLUTE BASOPHILS # (AUTO) 0.1 10^3/uL (0.0-0.2); ABSOLUTE EOSINOPHILS # (AUTO) 0.4 10^3/uL (0.0-0.6); ABSOLUTE LYMPHOCYTES (AUTO) 1.2 10^3/uL (0.5-4.7); ABSOLUTE MONOCYTES (AUTO) 0.8 10^3/uL (0.1-1.4); ABSOLUTE NEUT (AUTO) 7.2 10^3/uL (1.7-8.2); BASOPHILS % (AUTO) 1.1 % (0-2); HEMATOCRIT 44.1 % (37.9-51.0); HEMOGLOBIN 14.8 g/dL (13.5-17.0); HGB HCT DIFFERENCE 0.3; LYMPHOCYTES % (AUTO) 12.4 % (13-45); MEAN CORPUSCULAR HEMOGLOBIN 27.6 pg (27.0-33.4); MEAN CORPUSCULAR HGB CONC 33.5 g/dL (32.0-36.0); MEAN CORPUSCULAR VOLUME 82 fl (80-97); MONOCYTES % (AUTO) 8.4 % (3-13); RED BLOOD COUNT 5.35 10^6/uL (4.35-5.55); RED CELL DISTRIBUTION WIDTH 13.9 % (11.5-14.0); SEGMENTED NEUTROPHILS % (AUTO) 74.1 % (42-78); WHITE BLOOD COUNT 9.7 10^3/uL (4.0-10.5)
[2017-03-05 05:19] LABS: ANION GAP 17 (5-19); BLOOD UREA NITROGEN 20 mg/dL (7-20); CALCIUM 9.8 mg/dL (8.4-10.2); CARBON DIOXIDE 22 mmol/L (22-30); CHLORIDE 104 mmol/L (98-107); CREATININE RESULT 1.01 mg/dL (0.52-1.25); GLUCOSE 179 mg/dL (75-110); POTASSIUM 3.8 mmol/L (3.6-5.0); SODIUM 143.2 mmol/L (137-145)
[2017-03-05] MEDS: TOLTERODINE TARTRATE 1 MG TABLET PO SCH (05:28)
[2017-03-05] MEDS: CARBIDOPA/LEVODOPA 25-100 MG TABLET PO SCH ×2 (05:28→14:11)
[2017-03-05 08:07] VITALS: BP 152/69
--- NOTE | 2017-03-05 10:40 | PDOC TRANSFER SUMMARY ---
General - Admit/Disc Date/PCP Admission Date/Primary Care Provider: 03/01/17 12:12 YESI KIMBROUGH, DO Discharge Date: 03/05/17 - Discharge Diagnosis (1) Acute CVA (cerebrovascular accident) Is this a current diagnosis for this admission?: Yes (2) Coronary artery disease Is this a current diagnosis for this admission?: Yes (3) Diabetes mellitus Is this a current diagnosis for this admission?: Yes (4) Hypertension Is this a current diagnosis for this admission?: Yes (5) Parkinsons disease Is this a current diagnosis for this admission?: Yes (6) COPD (chronic obstructive pulmonary disease) Is this a current diagnosis for this admission?: Yes (7) DVT (deep venous thrombosis) Is this a current diagnosis for this admission?: Yes (8) Prostate cancer Is this a current diagnosis for this admission?: No - Additional Information Resuscitation Status: Full Code Discharge Diet: Cardiac - low-fat low-salt, Diabetic - no concentrated sweets, Other (Comments) - soft mechanical with cut meats and thin liquids Discharge Activity: Activity As Tolerated, Balance Activity w/Rest, Slowly Increase Activity Home Medications: Amitriptyline HCl [Elavil 10 mg Tablet] 10 mg PO BID 03/01/17 Carbidopa/Levodopa [Sinemet 25-100 mg Tablet] 1 tab PO TID 03/01/17 Gemfibrozil [Lopid 600 mg Tablet] 600 mg PO BIDBS 03/01/17 Metformin HCl [Glucophage] 1,000 mg PO BIDBS 03/01/17 Rosuvastatin Calcium [Crestor 20 mg Tablet] 20 mg PO SUWEFR 03/01/17 Sitagliptin Phosphate [Januvia] 100 mg PO DAILY 03/01/17 Tolterodine Tartrate [Detrol LA] 4 mg PO DAILY 03/01/17 Aspirin [Ecotrin 81 mg EC Tablet] 81 mg PO DAILY tabec 03/05/17 Atorvastatin Calcium [Lipitor 20 mg Tablet] 20 mg PO QHS tablet 03/05/17 Insulin Glargine,Hum.rec.anlog [Lantus Insulin 100 Unit/mL] 45 unit SUBCUT QHS insuln.pen 03/05/17 Ipratropium/Albuterol Sulfate [Duoneb 3 ml Ampul] 3 ml NEB [id number] PRN vial.neb 05/02/17 Rivaroxaban [Xarelto 10 mg Tablet] 20 mg PO WSUPPER tablet 03/05/17 History of Present Illness Admission Date/PCP: 03/01/17 12:12 YESI KIMBROUGH DO Patient complains of: Several falls History of Present Illness: JANIE BRYSON is a 76 year old male with history of coronary artery disease and hypertension who presented after having several falls. The patient is Parkinson 's disease and difficulty ambulating and he fell 3 times yesterday. The patient 's brought him into the hospital via EMS when he was having problems with right-sided weakness after the third fall. The patient had a head CT and there was concern that this represented a subdural hematoma and the patient was going to be transferred to [facility]. No beds were available items so the patient had an MRI here and it showed no evidence for subdural bleeding however did show an acute ischemic CVA. The patient has expressive aphasia and right-sided weakness. He is unable to answer any questions for me. He is unable to move his right side at all. Patient's son is at the bedside and gives the history for the patient. Hospital Course Hospital Course: The patient was admitted to [facility]. There was a question of subdural hematoma but an MRI of the brain revealed subacute stroke instead of the subdural hematomas. The patient was placed on aspirin, he was on Coumadin at home. Carotid Doppler did not reveal significant stenosis, echocardiogram showed normal ejection fraction, no reported thrombosis, no significant valvular disease. Speech therapy evaluation was done and patient unable to tolerate mechanical diet and thin liquids. Physical therapy was likewise instituted. Patient improved and has been stable. He was resumed back on warfarin which later was shifted to xarelto. Patient had prior history of deep venous thrombosis of which he takes chronic anticoagulation. The rest of the hospital stay is unremarkable. communications planner was consulted for subacute rehabilitation, and when a bed was available and he was eventually transferred. Physical Exam Vital Signs: Temp Pulse Resp BP Pulse Ox 98.0 F 82 20 152/69 H 94 03/05/17 07:56 03/05/17 07:56 03/05/17 07:56 03/05/17 07:56 03/05/17 07:56 Intake & Output 03/04/17 03/05/17 03/06/17 06:59 06:59 06:59 Intake Total 455 376 Output Total 200 Balance 455 176 Weight 78.8 kg 78.4 kg General appearance: PRESENT: no acute distress, cooperative Head exam: PRESENT: normocephalic Eye exam: PRESENT: EOMI Mouth exam: PRESENT: moist, neck supple Neck exam: ABSENT: JVD Respiratory exam: PRESENT: clear to auscultation jim Cardiovascular exam: PRESENT: RRR. ABSENT: gallop, systolic murmur GI/Abdominal exam: PRESENT: normal bowel sounds, soft. ABSENT: distended, tenderness Extremities exam: ABSENT: pedal edema Neurological exam: PRESENT: alert, awake, oriented to situation, other - Weakness on the right about 4 minus over 5. Skin exam: PRESENT: dry, warm. ABSENT: cyanosis Results Laboratory Results: 03/05/17 04:28 03/05/17 04:03/05/17 03/05/17 04:28 04:28 WBC 9.7 RBC 5.35 Hgb 14.8 Hct 44.1 MCV 82 MCH 27.6 MCHC 33.5 RDW 13.9 Plt Count 305 Seg Neutrophils % 74.1 Lymphocytes % 12.4 L Monocytes % 8.4 Eosinophils % 4.0 Basophils % 1.1 Absolute Neutrophils 7.2 Absolute Lymphocytes 1.2 Absolute Monocytes 0.8 Absolute Eosinophils 0.4 Absolute Basophils 0.1 Sodium 143.2 Potassium 3.8 Chloride 104 Carbon Dioxide 22 Anion Gap 17 BUN 20 Creatinine 1.01 Est GFR ( Amer) > 60 Est GFR (Non-Af Amer) > 60 Glucose 179 H Calcium 9.8 Impressions: Head CT 02/28/17 23:49 IMPRESSION: 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 Consider MRI correlation. Chest X-Ray 02/28/17 23:57 IMPRESSION: Small bibasilar atelectasis or scar. Brain MRI with MRA 03/01/17 04:29 IMPRESSION: No MR evidence of pathologic subdural collection. Prominent sulci and sylvian fissures, over the bifrontal and biparietal regions. Early subacute infarct in the left hemisphere, watershed distribution with minimal surface petechial staining. Unremarkable [place] [facility] [place]. Findings discussed with Dr. Potts in the emergency room Carotid Doppler Study 03/01/17 04:29 IMPRESSION: NO HEMODYNAMICALLY SIGNIFICANT STENOSIS OF THE PROXIMAL RIGHT OR LEFT INTERNAL CAROTID ARTERIES. ANTEGRADE BILATERAL PULSATILE VERTEBRAL ARTERY FLOW. Head MRI 03/01/17 04:29 IMPRESSION: No MR evidence of pathologic subdural collection. Prominent sulci and sylvian fissures, over the bifrontal and biparietal regions. Early subacute infarct in the left hemisphere, watershed distribution with minimal surface petechial staining. Unremarkable [place] [facility] [place]. Findings discussed with Dr. Potts in the emergency room Transfer Plan - Disposition Transfer Plan: Transferred to subacute rehabilitation. Patient will be followed by the physician at the subacute rehabilitation facility. - Time Spent with Patient Time spent with patient: Less than 30 Minutes Qualifiers PATEINT BEING DISCHARGED WITH ANY OF THE FOLLOWING DIAGNOSIS?: Stroke Stroke Pt being discharged on Anti-thrombolytic therapy?: No Reason(s) for not prescribing Anti-thrombolytic therapy:: Not indicated Stroke Pt being discharged on Anti-coagulation therapy?: Yes Stroke Pt being discharged on Statins?: Yes Plan Discharge Plan: Appointment with primary care physician in one week. Time Spent: Less than 30 Minutes
[2017-03-05] MEDS: SITAGLIPTIN PHOSPHATE 50 MG TABLET PO SCH (10:41)
[2017-03-05] MEDS: FAMOTIDINE INJ/PF 20 MG/2 ML SDV IV SCH (10:41)
[2017-03-05] MEDS: GEMFIBROZIL 600 MG TABLET PO SCH (10:41)
[2017-03-05] MEDS: AMITRIPTYLINE HCL 10 MG TABLET PO SCH (10:41)
[2017-03-05] MEDS: ASPIRIN 81 MG TABLET, ENT COATED PO SCH (10:41)
[2017-03-05] MEDS ORDERED: BISACODYL 10 MG SUPP.RECT PR ONE (14:30)
== END 2017-03-05 16:36 | DRG 65 ==
LOC: ER 23:45 → UNDOADMIN 03-01 12:05 → EH 03-01 12:05 → 3W 03-01 15:35
PROVIDERS: ADMIT Internal Medicine; ATTEND Internal Medicine
PROC: 3E0F73Z Introduction of Anti-inflammatory into Respiratory Tract, Via Natural or Artificial Opening (ICD-10-PCS; principal; 2017-03-02)
DX: I63.9 Cerebral infarction, unspecified (principal); G81.91 Hemiplegia, unspecified affecting right dominant side; R47.01 Aphasia; I25.10 Atherosclerotic heart disease of native coronary artery without angina pectoris; E11.9 Type 2 diabetes mellitus without complications; I10 Essential (primary) hypertension; G20 Parkinson's disease; J44.9 Chronic obstructive pulmonary disease, unspecified; C61 Malignant neoplasm of prostate; E78.5 Hyperlipidemia, unspecified; S50.02XA Contusion of left elbow, initial encounter; W19.XXXA Unspecified fall, initial encounter; Z79.899 Other long term (current) drug therapy; Z95.1 Presence of aortocoronary bypass graft; Z85.820 Personal history of malignant melanoma of skin; Z92.3 Personal history of irradiation; Z86.718 Personal history of other venous thrombosis and embolism; Z87.891 Personal history of nicotine dependence
CPT/HCPCS: 36415; 51701; 70450; 70544; 70553; 71010; 80048; 80053; 81001; 82550; 82553; 82962; 84484; 85025; 85027; 85610; 85730; 87086; 93005; 93010; 93306; 93880; 96360; 99285; A9577; G8978-GP; G8979-GP; G8987-GO; G8988-GO; G8996-GN; G8997-GN; J1650; J1815; J1940; J3490; J7030; J7620; S0028

== ENCOUNTER 2017-05-20 09:07 | Emergency (ER) | payer MEDICARE, OTHER ==
--- NOTE | 2017-05-20 10:08 | ER Document Report ---
ED General - General Chief Complaint: Fall Stated Complaint: FALL/HEAD INJURY Time Seen by Provider: 05/20/17 09:31 TRAVEL OUTSIDE OF THE [place] IN LAST 30 DAYS: No - HPI Patient complains to provider of: Possible fall Notes: Patient is coming in for evaluation of a possible fall at the half-way. is at bedside states that story she obtains that patient possibly fell in the middle of the night was able to get himself back in the bed. Patient has a history of multiple falls that he is not ambulatory however tries to get out of bed to walk. Upon my evaluation patient is lying in stretcher very glad to see me is shaking my hand with the light explained that he has no complaints at this time we should be discharged home. states patient has been acting normally since their arrival here in the ER. - Related Data Allergies/Adverse Reactions: No Known Allergies Allergy (Verified 03/01/17 10:37) Past Medical History - Social History Smoking Status: Unknown if Ever Smoked Family History: Reviewed & Not Pertinent - Past Medical History Cardiac Medical History: Reports: Hx Coronary Artery Disease, Hx Hypercholesterolemia, Hx Hypertension - MEDICATED Denies: Hx Heart Attack Pulmonary Medical History: Reports: Hx Asthma, Hx COPD Neurological Medical History: Denies: Hx Cerebrovascular Accident, Hx Seizures Endocrine Medical History: Reports: Hx Diabetes Mellitus Type 2 GI Medical History: Denies: Hx Hepatitis, Hx Hiatal Hernia, Hx Ulcer Infectious Medical History: Denies: Hx Hepatitis Past Surgical History: Reports: Hx Coronary Artery Bypass Graft, Hx Open Heart Surgery - CABGX2. Denies: Hx Pacemaker Review of Systems - Review of Systems -: Yes ROS unobtainable due to patient's medical condition - Dementia Physical Exam - Vital signs Vitals: Temp Pulse BP Pulse Ox 98.7 F 86 120/66 93 05/20/17 10:06 05/20/17 10:06 05/20/17 10:06 05/20/17 10:06 Interpretation: Normal - General General appearance: Appears well, Alert - HEENT Head: Normocephalic, Atraumatic Eyes: Normal Pupils: PERRL - Respiratory Respiratory status: No respiratory distress Chest status: Nontender Breath sounds: Normal Chest palpation: Normal - Cardiovascular Rhythm: Regular Heart sounds: Normal auscultation Murmur: No - Abdominal Inspection: Normal Distension: No distension Bowel sounds: Normal Tenderness: Nontender Organomegaly: No organomegaly - Back Back: Normal, Nontender - Extremities General upper extremity: Normal inspection, Nontender, Normal color, Normal ROM , Normal temperature General lower extremity: Normal inspection, Nontender, Normal color, Normal ROM , Normal temperature, Normal weight bearing. No: Arnaldo's sign - Neurological Neuro grossly intact: Yes Cognition: Confused Orientation: AAOx4 [place] Coma Scale Eye Opening: Spontaneous [place] Coma Scale Verbal: Oriented [place] Coma Scale Motor: Obeys Commands [place] Coma Scale Total: 15 Speech: Normal - Psychological Associated symptoms: Normal affect, Normal mood - Skin Skin Temperature: Warm Skin Moisture: Dry Skin Color: Normal Course - Re-evaluation Re-evalutation: 05/20/17 15:21 No signs of any acute pathology pupils PERRLA no signs of significant intracranial suspected on physical examination. Patient will be discharged home follow-up with his PCP as needed - Vital Signs Vital signs: Temp Pulse Resp BP Pulse Ox 98.7 F 86 120/66 93 05/20/17 10:06 05/20/17 10:06 05/20/17 10:06 05/20/17 10:06 Discharge - Discharge Clinical Impression: Fall at half-way Qualifiers: Encounter type: initial encounter Qualified Code(s): W19.XXXA - Unspecified fall, initial encounter Condition: Good Disposition: HOME, SELF-CARE Additional Instructions: Patient was evaluated no signs of any traumatic injuries. Patient is alert examination otherwise benign please create an environment to prevent falls with the patient continue to monitor the patient is that he is at high risk for falls. Referrals: LIS RAMÍREZ MD [Primary Care Provider] - Follow up as needed
[2017-05-20 10:13] VITALS: BP 120/66
== END 2017-05-20 11:10 | disposition home or self-care (01) ==
LOC: ER 09:07
DX: Z91.81 History of falling (principal); W19.XXXA Unspecified fall, initial encounter; Y92.129 Unspecified place in nursing home as the place of occurrence of the external cause; I25.10 Atherosclerotic heart disease of native coronary artery without angina pectoris; E78.00 Pure hypercholesterolemia, unspecified; I10 Essential (primary) hypertension; J44.9 Chronic obstructive pulmonary disease, unspecified; J45.909 Unspecified asthma, uncomplicated; E11.9 Type 2 diabetes mellitus without complications; Z95.1 Presence of aortocoronary bypass graft
CPT/HCPCS: 99284

== ENCOUNTER 2018-09-23 16:51 | Inpatient (IN) | payer MEDICARE, OTHER ==
--- NOTE | 2018-09-23 17:59 | RADIOLOGY REPORT (SQ) ---
EXAM DESCRIPTION: CHEST SINGLE VIEW COMPLETED DATE/TIME: 09/23/2018 5:42 pm REASON FOR STUDY: AMS COMPARISON: None. EXAM PARAMETERS: NUMBER OF VIEWS: One view. TECHNIQUE: Single frontal radiographic view of the chest acquired. RADIATION DOSE: NA LIMITATIONS: None. FINDINGS: LUNGS AND PLEURA: No opacities, masses or pneumothorax. No pleural effusion. MEDIASTINUM AND HILAR STRUCTURES: No masses. Contour normal. HEART AND VASCULAR STRUCTURES: Heart normal in size. Normal vasculature. BONES: No acute findings. HARDWARE: Sternotomy wires. OTHER: No other significant finding. IMPRESSION: NO ACUTE RADIOGRAPHIC FINDING IN THE CHEST. TECHNICAL DOCUMENTATION: JOB ID: [id number] [employer]- All Rights Reserved Reading location - IP/workstation name: [email or web address]
[2018-09-23 18:29] LABS: HEMOGLOBIN 14.1 g/dL (13.5-17.0); MEAN CORPUSCULAR HEMOGLOBIN 27.4 pg (27.0-33.4); MEAN CORPUSCULAR HGB CONC 33.6 g/dL (32.0-36.0); MEAN CORPUSCULAR VOLUME 81 fl (80-97); PLATELET COUNT 304 10^3/uL (150-450); RED BLOOD COUNT 5.16 10^6/uL (4.35-5.55); RED CELL DISTRIBUTION WIDTH 14.7 % (11.5-14.0)
--- NOTE | 2018-09-23 18:33 | RADIOLOGY REPORT (SQ) ---
EXAM DESCRIPTION: CT HEAD WITHOUT COMPLETED DATE/TIME: 09/23/2018 6:14 pm REASON FOR STUDY: altered mental status COMPARISON: MR 03/01/2017 CT 02/28/2017 TECHNIQUE: Axial images acquired through the brain without intravenous contrast. Images reviewed wi th bone, brain and subdural windows. Additional sagittal and coronal reconstructions were generated. Images stored on PACS. All CT scanners at this facility use dose modulation, iterative reconstruction, and/or weight based d osing when appropriate to reduce radiation dose to as low as reasonably achievable (ALARA). [facility]: Dose Right [facility]: CareDose [facility]: Dose Right [facility]: Teradose 4D [facility]: Smart Technologies RADIATION DOSE: CT Rad equipment meets quality standard of care and radiation dose reduction techniq ues were employed. CTDIvol: 53.2 mGy. DLP: 964 mGy-cm. mGy. LIMITATIONS: None. FINDINGS: VENTRICLES: Prominent ventricles secondary to involutional atrophy. CEREBRUM: There is considerable cortical atrophy. There is encephalomalacia in the left posterior pa rietal lobe. There is encephalomalacia in the left occipital lobe. There is a small area of encepha lomalacia in the left frontal lobe. No masses. No hemorrhage. No midline shift. No evidence for a cute infarction. Areas of low density in the white matter most likely chronic small vessel ischemic c hanges. CEREBELLUM: No masses. No hemorrhage. No alteration of density. No evidence for acute infarction. EXTRAAXIAL SPACES: CSF spaces are quite prominent secondary to cortical atrophy. ORBITS AND GLOBE: No intra- or extraconal masses. Normal contour of globe without masses. CALVARIUM: No fracture. PARANASAL SINUSES: No fluid or mucosal thickening. SOFT TISSUES: No mass or hematoma. OTHER: No other significant finding. IMPRESSION: MICROVASCULAR ISCHEMIA AND GENERALIZED ATROPHY. NO ACUTE IMAGING FINDINGS IN THE BRAIN. OLD INFARCTS ON THE LEFT SIDE RELATING BACK TO THE STUDIES THAT WERE DONE IN FEBRUARY 2017. EVIDENCE OF ACUTE STROKE: NO. COMMENT: Quality ID # [id number]: Final reports with documentation of one or more dose reduction techniques (e.g., Automated exposure control, adjustment of the mA and/or kV according to patient size, use of iterative reconstruction technique) TECHNICAL DOCUMENTATION: JOB ID: [id number] [employer]- All Rights Reserved Reading location - IP/workstation name: [email or web address]
[2018-09-23 18:51] LABS: ALANINE AMINOTRANSFERASE 81 U/L (21-72); ALBUMIN 3.5 g/dL (3.5-5.0); ALKALINE PHOSPHATASE 262 U/L (38-126); ASPARTATE AMINO TRANSFERASE 201 U/L (17-59); BILIRUBIN,DIRECT 0.7 mg/dL (0.0-0.4); BILIRUBIN,TOTAL 1.1 mg/dL (0.2-1.3); BLOOD UREA NITROGEN 65 mg/dL (7-20); CALCIUM 9.5 mg/dL (8.4-10.2); GLUCOSE 213 mg/dL (75-110); POTASSIUM 3.5 mmol/L (3.6-5.0); TOTAL PROTEIN 6.9 g/dL (6.3-8.2)
[2018-09-23 18:58] LABS: CARBON DIOXIDE 26 mmol/L (22-30); CHLORIDE 96 mmol/L (98-107); SODIUM 141.8 mmol/L (137-145)
[2018-09-23 18:59] LABS: ANION GAP 20 (5-19)
[2018-09-23 19:09] LABS: BAND NEUTROPHILS % (MANUAL) 1 % (3-5); BASOPHILS % (MANUAL) 0 % (0-2); EOSINOPHILS % (MANUAL) 0 % (0-6); LYMPHOCYTES % (MANUAL) 5 % (13-45); MONOCYTES % (MANUAL) 5 % (3-13); SEGMENTED NEUTROPHILS % (MAN) 89 % (42-78); TOTAL CELLS COUNTED 100
[2018-09-23 19:10] LABS: HYPOCHROMASIA SLIGHT; OVALOCYTES SLIGHT; PLATELET COMMENT ADEQUATE
[2018-09-23 19:11] LABS: POIKILOCYTOSIS SLIGHT
[2018-09-23] MEDS ORDERED: NORMAL SALINE 1000 ML 1,000 ML IV ONE (20:30)
[2018-09-23 21:13] LABS: APPEARANCE,URINE SLIGHTLY-CLOUDY; BILIRUBIN,URINE NEGATIVE (NEGATIVE); COLOR,URINE YELLOW; GLUCOSE, URINE NEGATIVE (NEGATIVE); KETONES,URINE NEGATIVE (NEGATIVE); LEUKOCYTE ESTERASE,URINE NEGATIVE (NEGATIVE); NITRITE,URINE NEGATIVE (NEGATIVE); PROTEIN,URINE NEGATIVE (NEGATIVE); URINE SPECIFIC GRAVITY 1.023
[2018-09-23 21:27] LABS: URINE AMPHETAMINES SCREEN NEGATIVE; URINE BARBITURATES SCREEN NEGATIVE; URINE BENZODIAZEPINES SCREEN NEGATIVE; URINE COCAINE SCREEN NEGATIVE; URINE MARIJUANA (THC) SCREEN NEGATIVE; URINE METHADONE SCREEN NEGATIVE; URINE PHENCYCLIDINE SCREEN NEGATIVE
--- NOTE | 2018-09-23 21:42 | RADIOLOGY REPORT (SQ) ---
EXAM DESCRIPTION: CT CHEST WITHOUT IV CONTRAST COMPLETED DATE/TME: 09/23/2018 21:09 CLINICAL HISTORY: 78 years, Male, sob, leukocytosis This exam was performed according to our departmental dose-optimization program which includes automated exposure control, adjustment of the mA and/or kVp according to patient size and/or use of iterative reconstruction technique where applicable. FINDINGS: Aorta is mildly calcified without aneurysm. No significant mediastinal, hilar or axillary lymphadenopathy. Moderate coronary artery calcification. No significant mediastinal, hilar or axillary lymphadenopathy. Visualized upper abdominal organs demonstrate mild pericholecystic inflammation. Mild right basilar airspace disease/atelectatic changes. Mild diffuse emphysematous changes. Trachea and major airways are patent. No suspicious lung nodule or mass. IMPRESSION: Mild right basilar pneumonia/atelectasis. Mild pericholecystic inflammatory changes are suspected, Although this may be due to respiratory artifact. Correlate clinically and follow-up ultrasound can be performed if cholecystitis is of clinical concern.
[2018-09-23] MEDS ORDERED: PIPERACILLIN/TAZOBACTAM 3.375 GM VIAL IV ONE (22:21)
--- NOTE | 2018-09-23 23:32 | RADIOLOGY REPORT (SQ) ---
US ABDOMEN LIMITED HISTORY: Right upper quadrant pain. COMPARISON: None. TECHNIQUE: Grayscale and color Doppler imaging of the right upper quadrant was performed. FINDINGS: The liver measures 15.6 cm. Normal liver echogenicity. No shadowing gallstones are seen. Gallbladder wall measures 6 to 9 mm. Common bile duct measures 3 mm. Visualized pancreas is unremarkable. Right kidney measures 8.3 cm in length, without hydronephrosis. Visualized portions of the IVC and aorta are patent. IMPRESSION: Gallbladder wall thickening but without evidence of shadowing gallstones or pericholecystic fluid. Findings are ambiguous for acute cholecystitis.
[2018-09-24] MEDS ORDERED: HYDRALAZINE HCL INJ/PF 20 MG/1 ML SDV IV PRN (00:03)
[2018-09-24] MEDS ORDERED: GUAIFENESIN SYRP 200 MG/10 ML UDC PO PRN (00:04)
[2018-09-24] MEDS ORDERED: DEXTROSE 40% GEL 15 GM TUBE PO PRN ×2 (00:04)
[2018-09-24] MEDS ORDERED: GLUCAGON,HUMAN RECOMB 1 MG INJ IM PRN (00:04)
[2018-09-24] MEDS ORDERED: DEXTROSE 50%-WATER 25 GM/50 ML DISP.SYRIN IV PRN ×2 (00:04)
[2018-09-24] MEDS ORDERED: IPRATROPIUM/ALBUTEROL 0.5-2.5 MG/3 ML AMPUL NEB PRN (00:04)
--- NOTE | 2018-09-24 00:07 | ER Document Report ---
ED General - General Chief Complaint: Altered Mental Status Stated Complaint: POSSIBLE STROKE Time Seen by Provider: 09/23/18 17:18 Mode of Arrival: Medic Information source: Relative, Transfer Record Cannot obtain history due to: Dementia Notes: This is a 78-year-old man with a complicated medical history that is brought in from [facility] by EMS for decreased responsiveness. Patient's family states he has been coughing a lot and they state that he is not nearly as interactive or nearly as verbal as he normally is. These changes have occurred over the last 2 days. The patient's past medical history includes COPD , CVA, dementia, prostate cancer, Parkinson's disease, diabetes and coronary artery disease. Patient is not on oxygen as an outpatient. TRAVEL OUTSIDE OF THE U[place]S. IN LAST 30 DAYS: No - HPI Onset: Yesterday Onset/Duration: Gradual Quality of pain: No pain Severity: None Pain Level: Denies Associated symptoms: Nonproductive cough. denies: Fever Exacerbated by: Denies Relieved by: Denies Similar symptoms previously: Yes Recently seen / treated by doctor: Yes - Related Data Allergies/Adverse Reactions: No Known Allergies Allergy (Verified 03/01/17 10:37) Past Medical History - General Information source: Relative - Social History Smoking Status: Unknown if Ever Smoked Cigarette use (# per day): No Chew tobacco use (# tins/day): No Frequency of alcohol use: None Drug Abuse: None Lives with: Intermediate Family History: Reviewed & Not Pertinent Patient has suicidal ideation: No Patient has homicidal ideation: No - Past Medical History Cardiac Medical History: Reports: Hx Coronary Artery Disease, Hx Hypercholesterolemia, Hx Hypertension - MEDICATED Denies: Hx Heart Attack Pulmonary Medical History: Reports: Hx Asthma, Hx COPD Neurological Medical History: Denies: Hx Cerebrovascular Accident, Hx Seizures Endocrine Medical History: Reports: Hx Diabetes Mellitus Type 2 Renal/ Medical History: Denies: Hx Peritoneal Dialysis GI Medical History: Denies: Hx Hepatitis, Hx Hiatal Hernia, Hx Ulcer Infectious Medical History: Denies: Hx Hepatitis Past Surgical History: Reports: Hx Coronary Artery Bypass Graft, Hx Open Heart Surgery - CABGX2. Denies: Hx Pacemaker Review of Systems - Review of Systems Constitutional: denies: Chills, Fever EENT: No symptoms reported Cardiovascular: No symptoms reported Respiratory: See HPI Gastrointestinal: No symptoms reported Genitourinary: No symptoms reported Male Genitourinary: No symptoms reported Musculoskeletal: No symptoms reported Skin: No symptoms reported Hematologic/Lymphatic: No symptoms reported Neurological/Psychological: No symptoms reported Physical Exam - Vital signs Vitals: Temp Pulse Resp BP Pulse Ox 99.3 F 99 27 H 131/75 H 90 L 09/23/18 17:00 09/23/18 17:00 09/23/18 17:00 09/23/18 17:00 09/23/18 17:00 Notes: Physical exam: GENERAL: She is alert and his eyes are open but he is nonverbal at this time. Patient's states that this is a deviation from what his normal baseline status is. Since oxygen saturation was noted to be 90% in triage. HEAD: Atraumatic, normocephalic. EYES: Pupils equal round and reactive to light, extraocular movements intact, sclera anicteric, conjunctiva are normal. ENT: TMs normal, nares patent, oropharynx clear without exudates. Moist mucous membranes. NECK: Normal range of motion, supple without obvious mass or JVD. LUNGS: Bilateral rhonchi HEART: Regular rate and rhythm without murmurs, rubs or gallops. ABDOMEN: Soft, normoactive bowel sounds. No tenderness to palpation. There is no Huff sign. There is no pain at McBurney's point. There is no soft flank or CVA tenderness. No guarding, no rebound. No masses appreciated. EXTREMITIES: Normal range of motion, no pitting or edema. No clubbing or cyanosis. NEUROLOGICAL: Cranial nerves II through XII grossly intact. Normal speech, moving all extremities. PSYCH: Normal mood, normal affect. SKIN: Warm, Dry, normal turgor, no rashes or lesions noted. Course - Re-evaluation Re-evalutation: 09/24/18 00:06 Note: Incidental finding on the chest CT was possible inflammation around the gallbladder. Patient has no tenderness on exam in the right upper quadrant. He did have mildly elevated LFTs. Ultrasound of the gallbladder shows no gallbladder stones or evidence of common bile duct dilatation. Given the patient's respiratory symptoms and his oxygen desaturation, I feel that the leukocytosis is most likely due to the pneumonia. Patient was started on IV antibiotics. His Drip score was greater than 4 so he was started on Zosyn and Vanco. - Vital Signs Vital signs: Temp Pulse Resp BP Pulse Ox 99.3 F 99 22 H 117/69 95 09/23/18 17:00 09/23/18 17:00 09/23/18 19:01 09/23/18 19:01 09/23/18 19:01 - Laboratory Result Diagrams: 09/23/18 18:03 09/23/18 18:03 Laboratory results interpreted by me: 09/23/18 09/23/18 09/23/18 18:03 18:03 18:03 WBC 20.0 H RDW 14.7 H Seg Neuts % (Manual) 89 H Band Neutrophils % 1 L Lymphocytes % (Manual) 5 L Abs Neuts (Manual) 18.0 H Potassium 3.5 L Chloride 96 L Anion Gap 20 H BUN 65 H Glucose 213 H Direct Bilirubin 0.7 H AST 201 H ALT 81 H Alkaline Phosphatase 262 H NT-Pro-B Natriuret Pep 513 H Urine Urobilinogen Urine Ascorbic Acid 09/23/18 20:50 WBC RDW Seg Neuts % (Manual) Band Neutrophils % Lymphocytes % (Manual) Abs Neuts (Manual) Potassium Chloride Anion Gap BUN Glucose Direct Bilirubin AST ALT Alkaline Phosphatase NT-Pro-B Natriuret Pep Urine Urobilinogen 4.0 H Urine Ascorbic Acid 40 H - Diagnostic Test Radiology reviewed: Image reviewed, Reports reviewed - CT shows pneumonia. Critical Care Note - Critical Care Note Total time excluding time spent on procedures (mins): 60 Discharge - Discharge Clinical Impression: Pneumonia Condition: Stable Disposition: ADMITTED INPATIENT Admitting Provider: Hospitalist - Dr. Andino Unit Admitted: Telemetry Referrals: LIS RAMÍREZ MD [Primary Care Provider] - Follow up as needed
[2018-09-24] MEDS ORDERED: VANCOMYCIN HCL 0 MG in DEXTROSE 5%-WATER 250 ML IV NR (00:15)
[2018-09-24] MEDS ORDERED: PIPERACILLIN/TAZOBACTAM 3.375 GM VIAL IV PRN (00:35)
[2018-09-24] MEDS ORDERED: CHLORPHENIRAMINE MALEATE 4 MG TABLET PO ONE (00:45)
[2018-09-24] MEDS ORDERED: CARBIDOPA/LEVODOPA 25-100 MG TABLET ONE (01:02)
[2018-09-24] MEDS: CARBIDOPA/LEVODOPA 25-100 MG TABLET PO SCH ×4 (01:06→18:00)
[2018-09-24] MEDS ORDERED: PIPERACILLIN/TAZOBACTAM 3.375 GM VIAL IV ONE (02:04)
[2018-09-24] MEDS ORDERED: CHLORPHENIRAMINE MALEATE 4 MG TABLET ONE (02:05)
[2018-09-24] MEDS: NORMAL SALINE 1000 ML 1,000 ML IV PRN ×2 (02:11→12:40)
[2018-09-24] MEDS: IPRATROPIUM/ALBUTEROL 0.5-2.5 MG/3 ML AMPUL NEB SCH ×4 (02:24→20:48)
--- NOTE | 2018-09-24 03:03 | PDOC H&P ---
History of Present Illness Admission Date/PCP: 09/24/18 00:21 Patient complains of: Altered mental status History of Present Illness: JANIE BRYSON is a 78 year old male who is a long-term correction resident with a history of multiple CVAs, coronary artery disease, hypertension, Parkinson's disease with falls, dementia, diabetes and non-O2 dependent COPD. Patient is brought to the emergency room by family members from [facility] [facility] after being found with cough and decreased responsiveness. Patient is unable to provide any history, awake and alert in no acute distress but found to have leukocytosis of 20,000, and right lower infiltrate suggestive of pneumonia. Mildly elevated LFTs are followed up with ultrasound which did not show ductal dilatation. He was started on Zosyn and vancomycin then referred to the hospitalist for admission. Past Medical History Cardiac Medical History: Reports: Coronary Artery Disease, Hyperlipidema, Hypertension - MEDICATED Denies: Myocardial Infarction Pulmonary Medical History: Reports: Asthma, Chronic Obstructive Pulmonary Disease (COPD) Neurological Medical History: Denies: Seizures Endocrine Medical History: Reports: Diabetes Mellitus Type 2 GI Medical History: Denies: Hepatitis, Hiatal Hernia Psychiatric Medical History: Denies: Depression Hematology: Denies: Anemia, Sickle Cell Disease Past Surgical History Past Surgical History: Reports: Coronary Artery Bypass Graft Denies: Pacemaker Social History Information Source: Emergency Med Personnel, [facility] Records Lives with: Jail Smoking Status: Unknown if Ever Smoked Frequency of Alcohol Use: None Hx Recreational Drug Use: No Drugs: None Hx Prescription Drug Abuse: No - Advance Directive Resuscitation Status: Full Code Family History Family History: Other - Unobtainable Parental Family History Reviewed: No - Unobtainable Children Family History Reviewed: No - Unobtainable Sibling(s) Family History Reviewed.: No Medication/Allergy Home Medications: Amitriptyline HCl [Elavil 10 mg Tablet] 10 mg PO BID 03/01/17 Carbidopa/Levodopa [Sinemet 25-100 mg Tablet] 1 tab PO TID 03/01/17 Gemfibrozil [Lopid 600 mg Tablet] 600 mg PO BIDBS 03/01/17 Metformin HCl [Glucophage] 1,000 mg PO BIDBS 03/01/17 Rosuvastatin Calcium [Crestor 20 mg Tablet] 20 mg PO SUWEFR 03/01/17 Sitagliptin Phosphate [Januvia] 100 mg PO DAILY 03/01/17 Tolterodine Tartrate [Detrol LA] 4 mg PO DAILY 03/01/17 Aspirin [Ecotrin 81 mg EC Tablet] 81 mg PO DAILY tabec 03/05/17 Atorvastatin Calcium [Lipitor 20 mg Tablet] 20 mg PO QHS tablet 03/05/17 Insulin Glargine,Hum.rec.anlog [Lantus Insulin 100 Unit/mL] 45 unit SUBCUT QHS insuln.pen 03/05/17 Ipratropium/Albuterol Sulfate [Duoneb 3 ml Ampul] 3 ml NEB RTQ4HP PRN vial.neb 03/05/17 Rivaroxaban [Xarelto 10 mg Tablet] 20 mg PO WSUPPER tablet 03/05/17 Allergies/Adverse Reactions: No Known Allergies Allergy (Verified 03/01/17 10:37) Review of Systems ROS unobtainable: Due to mental status - Unobtainable Physical Exam Vital Signs: Temp Pulse Resp BP Pulse Ox 99.3 F 73 15 133/72 H 94 09/23/18 17:00 09/24/18 02:24 09/24/18 02:24 09/23/18 21:01 09/24/18 02:24 Intake & Output 09/22/18 09/23/18 09/24/18 11:59 11:59 11:59 Intake Total 1000 Balance 1000 General appearance: PRESENT: no acute distress, well-developed, well-nourished Head exam: PRESENT: atraumatic, normocephalic Eye exam: PRESENT: conjunctiva pink, EOMI, PERRLA. ABSENT: scleral icterus Ear exam: PRESENT: normal external ear exam Mouth exam: PRESENT: moist, tongue midline Neck exam: ABSENT: carotid bruit, JVD, lymphadenopathy, thyromegaly Respiratory exam: PRESENT: crackles, rales - Right-sided. ABSENT: rhonchi, wheezes Cardiovascular exam: PRESENT: RRR. ABSENT: diastolic murmur, rubs, systolic murmur Pulses: PRESENT: normal dorsalis pedis pul Vascular exam: PRESENT: normal capillary refill GI/Abdominal exam: PRESENT: normal bowel sounds, soft. ABSENT: distended, guarding, mass, organolmegaly, rebound, tenderness Rectal exam: PRESENT: deferred Extremities exam: PRESENT: full ROM. ABSENT: calf tenderness, clubbing, pedal edema Neurological exam: PRESENT: alert, awake, oriented to person, oriented to place , oriented to time, oriented to situation, CN II-XII grossly intact. ABSENT: motor sensory deficit Psychiatric exam: PRESENT: appropriate affect, normal mood. ABSENT: homicidal ideation, suicidal ideation Skin exam: PRESENT: dry, intact, warm. ABSENT: cyanosis, rash Results Impressions: Chest X-Ray 09/23/18 00:00 IMPRESSION: NO ACUTE RADIOGRAPHIC FINDING IN THE CHEST. Head CT 09/23/18 17:49 IMPRESSION: MICROVASCULAR ISCHEMIA AND GENERALIZED ATROPHY. NO ACUTE IMAGING FINDINGS IN THE BRAIN. OLD INFARCTS ON THE LEFT SIDE RELATING BACK TO THE STUDIES THAT WERE DONE IN FEBRUARY 2017. EVIDENCE OF ACUTE STROKE: NO. Chest CT 09/23/18 21:09 IMPRESSION: Mild right basilar pneumonia/atelectasis. Mild pericholecystic inflammatory changes are suspected, Although this may be due to respiratory artifact. Correlate clinically and follow-up ultrasound can be performed if cholecystitis is of clinical concern. Abdomen Ultrasound 09/23/18 22:18 IMPRESSION: Gallbladder wall thickening but without evidence of shadowing gallstones or pericholecystic fluid. Findings are ambiguous for acute cholecystitis. 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 Possible aspiration, modified consistency diet ordered, consider speech therapy consult and modified barium swallow. (2) COPD (chronic obstructive pulmonary disease) Is this a current diagnosis for this admission?: Yes Plan: Albuterol, Atrovent, incentive spirometry and supplemental oxygen (3) Diabetes mellitus Is this a current diagnosis for this admission?: Yes Plan: Outpatient regiment, Humalog sliding scale coverage.
[2018-09-24] MEDS ORDERED: VANCOMYCIN HCL INJ 1000 MG VIAL IV PRN (03:07)
[2018-09-24] MEDS ORDERED: VANCOMYCIN HCL 1,250 MG in DEXTROSE 5%-WATER 250 ML IV ONE (04:00)
[2018-09-24] MEDS: PIPERACILLIN SODIUM/TAZOBACTAM 3.375 GM in NORMAL SALINE 100 ML IV SCH ×4 (05:24→23:38)
[2018-09-24] MEDS ORDERED: VANCOMYCIN HCL INJ 500 MG VIAL ONE (05:44)
[2018-09-24] MEDS ORDERED: VANCOMYCIN HCL INJ 1000 MG VIAL ONE (05:44)
[2018-09-24] MEDS: FLUTICASONE NASAL SPRAY 50 MCG/SPRY 120 SPRAY/16 GM NASL SCH ×2 (09:46→21:18)
[2018-09-24] MEDS ORDERED: ASPIRIN 81 MG TABLET, ENT COATED PO SCH (10:00)
[2018-09-24] MEDS: INSULIN LISPRO 100 UNIT/ML 3 ML VIAL SUBCUT PRN (12:28)
--- NOTE | 2018-09-24 15:34 | RADIOLOGY REPORT (SQ) ---
EXAM DESCRIPTION: MRI HEAD WITHOUT COMPLETED DATE/TIME: 09/24/2018 3:21 pm REASON FOR STUDY: CVA,expressive apahasia COMPARISON: CT brain, 09/23/2018, MR brain, 03/01/2017 TECHNIQUE: Multiplanar imaging includes non-contrasted T1, T2, FLAIR, and diffusion with ADC map seq uences. Images stored on PACS. LIMITATIONS: None. FINDINGS: ANATOMY: No anomalies. Normal vascular flow voids. Pituitary fossa normal. CSF SPACES: Normal in size and contour. No hemorrhage. CEREBRUM: Sulci and gyri normal in size and contour. There is extensive, confluent bihemispheric T2/ FLAIR white matter hyperintensity and volume loss, more severe in the left hemisphere. No evidence o f hemorrhage, mass, or extraaxial fluid collection. POSTERIOR FOSSA: No signal alteration. No hemorrhage. No edema, masses or mass effect. Internal kenny tory canals, cerebello-pontine angles, mastoids normal. DIFFUSION IMAGING: There are small foci of diffusion restriction in the left MCA watershed, more cons picuous posteriorly and in the vicinity of a previously seen large watershed infarction. ORBITS: No masses. Globes normal. PARANASAL SINUSES: No fluid levels. Mucosa normal. OTHER: No other significant finding. IMPRESSION: 1. There are small foci of diffusion restriction in the left MCA watershed, more conspic uous posteriorly and in the vicinity of a previously seen large watershed infarction, consistent with small recurrent watershed infarcts. 2. Left watershed encephalomalacia in keeping with previously demonstrated large left hemispheric wa tershed infarction. 3. Advanced small vessel white matter disease and global volume loss. EVIDENCE OF ACUTE STROKE: YES. TECHNICAL DOCUMENTATION: JOB ID: [id number]- All Rights Reserved Reading location - IP/workstation name: [email or web address]
[2018-09-24] MEDS: ASPIRIN 81 MG TABLET, CHEWABLE PO SCH (16:00)
[2018-09-24] MEDS: RIVAROXABAN 10 MG TABLET PO SCH (16:03)
[2018-09-24] MEDS: ATORVASTATIN CALCIUM 40 MG TABLET PO SCH (21:18)
[2018-09-24] MEDS: VANCOMYCIN HCL 750 MG in DEXTROSE 5%-WATER 250 ML IV SCH (21:21)
[2018-09-25] MEDS: IPRATROPIUM/ALBUTEROL 0.5-2.5 MG/3 ML AMPUL NEB SCH ×4 (02:11→20:23)
[2018-09-25] MEDS: PIPERACILLIN SODIUM/TAZOBACTAM 3.375 GM in NORMAL SALINE 100 ML IV SCH ×4 (05:28→23:27)
[2018-09-25 06:10] LABS: HEMATOCRIT 35.4 % (37.9-51.0); MEAN CORPUSCULAR HEMOGLOBIN 27.1 pg (27.0-33.4); MEAN CORPUSCULAR HGB CONC 33.3 g/dL (32.0-36.0); MEAN CORPUSCULAR VOLUME 81 fl (80-97); PLATELET COUNT 221 10^3/uL (150-450); RED BLOOD COUNT 4.34 10^6/uL (4.35-5.55); RED CELL DISTRIBUTION WIDTH 14.7 % (11.5-14.0); WHITE BLOOD COUNT 12.6 10^3/uL (4.0-10.5)
[2018-09-25 06:14] LABS: HEMOGLOBIN 11.8 g/dL (13.5-17.0)
[2018-09-25 06:26] LABS: ALANINE AMINOTRANSFERASE 53 U/L (21-72); ALBUMIN 2.7 g/dL (3.5-5.0); ALKALINE PHOSPHATASE 263 U/L (38-126); ANION GAP 15 (5-19); ASPARTATE AMINO TRANSFERASE 107 U/L (17-59); BILIRUBIN,DIRECT 0.4 mg/dL (0.0-0.4); BILIRUBIN,TOTAL 0.8 mg/dL (0.2-1.3); BLOOD UREA NITROGEN 27 mg/dL (7-20); CARBON DIOXIDE 25 mmol/L (22-30); CHLORIDE 102 mmol/L (98-107); GLUCOSE 200 mg/dL (75-110); POTASSIUM 3.1 mmol/L (3.6-5.0); SODIUM 141.6 mmol/L (137-145); TOTAL PROTEIN 5.7 g/dL (6.3-8.2)
[2018-09-25 06:39] LABS: ABSOLUTE LYMPHOCYTES# (MANUAL) 0.1 10^3/uL (0.5-4.7); ABSOLUTE MONOCYTES # (MANUAL) 0.8 10^3/uL (0.1-1.4); ABSOLUTE NEUTROPHILS# (MANUAL) 11.7 10^3/uL (1.7-8.2); BASOPHILS % (MANUAL) 0 % (0-2); EOSINOPHILS % (MANUAL) 0 % (0-6); LYMPHOCYTES % (MANUAL) 1 % (13-45); MONOCYTES % (MANUAL) 6 % (3-13); SEGMENTED NEUTROPHILS % (MAN) 93 % (42-78); TOTAL CELLS COUNTED 100; TOXIC VACUOLATION PRESENT
[2018-09-25 06:40] LABS: ANISOCYTOSIS SLIGHT; PLATELET COMMENT ADEQUATE
[2018-09-25] MEDS: CARBIDOPA/LEVODOPA 25-100 MG TABLET PO SCH ×3 (10:22→17:37)
[2018-09-25] MEDS: FLUTICASONE NASAL SPRAY 50 MCG/SPRY 120 SPRAY/16 GM NASL SCH ×2 (10:22→21:18)
[2018-09-25] MEDS: ASPIRIN 81 MG TABLET, CHEWABLE PO SCH (10:22)
[2018-09-25] MEDS: VANCOMYCIN HCL 750 MG in DEXTROSE 5%-WATER 250 ML IV SCH ×2 (10:24→21:22)
--- NOTE | 2018-09-25 13:27 | PDOC PROGRESS REPORT ---
Subjective Progress Note for:: 09/25/18 Subjective:: Mr. Davila is a 78 yr old male with a PMH of previous CVAs, CAD, Parkinson's disease, dementia, diabetes mellitus and COPD who was admitted for possible acute CVA and HCAP. MRI did show acute infarcts. He was not a TPA candidate. No acute event overnight. This morning, he is more verbal and is now more coherent from yesterday but is now able to identify people's names but not date and time ( from baseline dementia). Reason For Visit: POSSIBLE STROKE Physical Exam Vital Signs: Temp Pulse Resp BP Pulse Ox 97.6 F 63 18 120/55 L 98 09/25/18 11:20 09/25/18 11:20 09/25/18 11:20 09/25/18 11:20 09/25/18 11:20 Intake & Output 09/24/18 09/25/18 09/26/18 06:59 06:59 06:59 Intake Total 1100 2724 225 Output Total 300 675 250 Balance 800 2049 -25 Weight 148 lb 5.938 oz 147 lb 4.301 oz General appearance: PRESENT: no acute distress, well-developed, well-nourished Head exam: PRESENT: atraumatic, normocephalic Eye exam: PRESENT: conjunctiva pink, EOMI, PERRLA. ABSENT: scleral icterus Ear exam: PRESENT: normal external ear exam Mouth exam: PRESENT: moist, tongue midline Neck exam: ABSENT: carotid bruit, JVD, lymphadenopathy, thyromegaly Respiratory exam: PRESENT: rales - mild rales on the right base. ABSENT: rhonchi, wheezes Cardiovascular exam: PRESENT: RRR. ABSENT: diastolic murmur, rubs, systolic murmur Pulses: PRESENT: normal dorsalis pedis pul GI/Abdominal exam: PRESENT: normal bowel sounds, soft. ABSENT: distended, guarding, mass, organolmegaly, rebound, tenderness Rectal exam: PRESENT: deferred Neurological exam: PRESENT: alert, awake, oriented to person, motor sensory deficit - 4/5 motor strength on the right arm Results Laboratory Results: 09/25/18 05:20 09/25/18 05:20 09/25/18 09/25/18 05:20 05:20 WBC 12.6 H RBC 4.34 L Hgb 11.8 L D Hct 35.4 L MCV 81 MCH 27.1 MCHC 33.3 RDW 14.7 H Plt Count 221 Seg Neutrophils % Not Reportable Lymphocytes % Not Reportable Monocytes % Not Reportable Eosinophils % Not Reportable Basophils % Not Reportable Absolute Neutrophils Not Reportable Absolute Lymphocytes Not Reportable Absolute Monocytes Not Reportable Absolute Eosinophils Not Reportable Absolute Basophils Not Reportable Sodium 141.6 Potassium 3.1 L Chloride 102 Carbon Dioxide 25 Anion Gap 15 BUN 27 H Creatinine 0.77 Est GFR ( Amer) > 60 Est GFR (Non-Af Amer) > 60 Glucose 200 H Calcium 8.0 L Total Bilirubin 0.8 AST 107 H ALT 53 Alkaline Phosphatase 263 H Total Protein 5.7 L Albumin 2.7 L Impressions: Chest X-Ray 09/23/18 00:00 IMPRESSION: NO ACUTE RADIOGRAPHIC FINDING IN THE CHEST. Head CT 09/23/18 17:49 IMPRESSION: MICROVASCULAR ISCHEMIA AND GENERALIZED ATROPHY. NO ACUTE IMAGING FINDINGS IN THE BRAIN. OLD INFARCTS ON THE LEFT SIDE RELATING BACK TO THE STUDIES THAT WERE DONE IN FEBRUARY 2017. EVIDENCE OF ACUTE STROKE: NO. Chest CT 09/23/18 21:09 IMPRESSION: Mild right basilar pneumonia/atelectasis. Mild pericholecystic inflammatory changes are suspected, Although this may be due to respiratory artifact. Correlate clinically and follow-up ultrasound can be performed if cholecystitis is of clinical concern. Abdomen Ultrasound 09/23/18 22:18 IMPRESSION: Gallbladder wall thickening but without evidence of shadowing gallstones or pericholecystic fluid. Findings are ambiguous for acute cholecystitis. Head MRI 09/24/18 11:21 IMPRESSION: 1. There are small foci of diffusion restriction in the left MCA watershed, more conspicuous posteriorly and in the vicinity of a previously seen large watershed infarction, consistent with small recurrent watershed infarcts. 2. Left watershed encephalomalacia in keeping with previously demonstrated large left hemispheric watershed infarction. 3. Advanced small vessel white matter disease and global volume loss. EVIDENCE OF ACUTE STROKE: YES. Assessment & Plan - Diagnosis (1) Acute CVA (cerebrovascular accident) Is this a current diagnosis for this admission?: Yes Plan: MRI showed left MCA small recurrent watershed infarcts and chronic old changes from previous large left hemispheric CVAs. Continue aspirin and statin. PT/OT. Patient will be discharged back to rehab tomorrow. (2) HCAP (healthcare-associated pneumonia) Is this a current diagnosis for this admission?: Yes Plan: Patient has right sided pneumonia. Continue one more day of IV antibiotics. Will switch to PO Levaquin tomorrow. WBC trending down. (3) Hypokalemia Is this a current diagnosis for this admission?: Yes Plan: Replace potassium. Will repeat BMP. - Time Time Spent with patient: 15-24 minutes
[2018-09-25] MEDS ORDERED: POTASSIUM CHLORIDE 10 MEQ CAPSULE.ER PO ONE (13:28)
[2018-09-25] MEDS ORDERED: POTASSIUM CHLORIDE 20 MEQ/15 ML UDCUP PO ONE (14:00)
[2018-09-25] MEDS: RIVAROXABAN 10 MG TABLET PO SCH (17:36)
[2018-09-25] MEDS: INSULIN LISPRO 100 UNIT/ML 3 ML VIAL SUBCUT PRN ×2 (17:37→23:28)
[2018-09-25 17:45] LABS: ANION GAP 11 (5-19); BLOOD UREA NITROGEN 21 mg/dL (7-20); CALCIUM 7.9 mg/dL (8.4-10.2); CARBON DIOXIDE 26 mmol/L (22-30); CHLORIDE 104 mmol/L (98-107); GLUCOSE 278 mg/dL (75-110); POTASSIUM 3.9 mmol/L (3.6-5.0); SODIUM 140.7 mmol/L (137-145)
[2018-09-25] MEDS: ATORVASTATIN CALCIUM 40 MG TABLET PO SCH (21:19)
[2018-09-26] MEDS: IPRATROPIUM/ALBUTEROL 0.5-2.5 MG/3 ML AMPUL NEB SCH ×3 (02:12→13:39)
[2018-09-26 05:35] LABS: ABSOLUTE BASOPHILS # (AUTO) 0.1 10^3/uL (0.0-0.2); ABSOLUTE EOSINOPHILS # (AUTO) 0.2 10^3/uL (0.0-0.6); ABSOLUTE LYMPHOCYTES (AUTO) 0.7 10^3/uL (0.5-4.7); ABSOLUTE MONOCYTES (AUTO) 0.4 10^3/uL (0.1-1.4); ABSOLUTE NEUT (AUTO) 9.3 10^3/uL (1.7-8.2); BASOPHILS % (AUTO) 0.7 % (0-2); HEMOGLOBIN 11.8 g/dL (13.5-17.0); LYMPHOCYTES % (AUTO) 6.7 % (13-45); MEAN CORPUSCULAR HEMOGLOBIN 27.1 pg (27.0-33.4); MEAN CORPUSCULAR HGB CONC 33.6 g/dL (32.0-36.0); MEAN CORPUSCULAR VOLUME 81 fl (80-97); MONOCYTES % (AUTO) 4.1 % (3-13); PLATELET COUNT 246 10^3/uL (150-450); RED BLOOD COUNT 4.33 10^6/uL (4.35-5.55); RED CELL DISTRIBUTION WIDTH 14.6 % (11.5-14.0); SEGMENTED NEUTROPHILS % (AUTO) 86.5 % (42-78); TOTAL CELLS COUNTED % (AUTO) 100 %; WHITE BLOOD COUNT 10.8 10^3/uL (4.0-10.5)
[2018-09-26] MEDS: PIPERACILLIN SODIUM/TAZOBACTAM 3.375 GM in NORMAL SALINE 100 ML IV SCH ×2 (06:55→12:38)
[2018-09-26] MEDS: VANCOMYCIN HCL 750 MG in DEXTROSE 5%-WATER 250 ML IV SCH (11:24)
[2018-09-26] MEDS: FLUTICASONE NASAL SPRAY 50 MCG/SPRY 120 SPRAY/16 GM NASL SCH (11:27)
[2018-09-26] MEDS: ASPIRIN 81 MG TABLET, CHEWABLE PO SCH (11:27)
[2018-09-26] MEDS: CARBIDOPA/LEVODOPA 25-100 MG TABLET PO SCH ×2 (11:28→15:58)
--- NOTE | 2018-09-26 13:20 | PDOC TRANSFER SUMMARY ---
General Admission Date/PCP: 09/24/18 00:21 Resuscitation Status: Full Code - Transfer Diagnosis (1) Acute CVA (cerebrovascular accident) Is this a current diagnosis for this admission?: Yes (2) HCAP (healthcare-associated pneumonia) Is this a current diagnosis for this admission?: Yes (3) Hypokalemia Is this a current diagnosis for this admission?: Yes (4) History of pulmonary embolism Is this a current diagnosis for this admission?: Yes (5) History of DVT (deep vein thrombosis) Is this a current diagnosis for this admission?: Yes - Transfer Medications Home Medications: Carbidopa/Levodopa [Sinemet 25-100 mg Tablet] 1 tab PO TID 03/01/17 Metformin HCl [Glucophage] 1,000 mg PO BIDBS 03/01/17 Sitagliptin Phosphate [Januvia] 100 mg PO DAILY 03/01/17 Tolterodine Tartrate [Detrol LA] 4 mg PO DAILY 03/01/17 Cyanocobalamin (Vitamin B-12) [B-12] 1,000 mcg PO DAILY 09/24/18 Docusate Sodium [Colace 100 mg Capsule] 100 mg PO DAILYP PRN 09/24/18 Insulin Lispro [Humalog Insulin (Lispro) 100 unit/mL] 0 unit SUBCUT .SLD SCALE 09/24/18 Magnesium Hydroxide [Milk of Magnesia 30 ml Udcup] 30 ml PO ASDIR PRN 09/24/18 Mirtazapine [Remeron 15 mg Tablet] 7.5 mg PO QHS 09/24/18 Sertraline HCl [Zoloft 50 mg Tablet] 50 mg PO DAILY 09/24/18 Transfer Medications: Current Medications Albuterol/Ipratropium (Duoneb 3 Ml Ampul) 3 ml NEB [id number] PRN PRN Reason: SHORTNESS OF BREATH Stop: 10/24/18 00:03 Albuterol/Ipratropium (Duoneb 3 Ml Ampul) 3 ml NEB RTQ6 [facility]ON[facility] Stop: 10/24/18 01:59 Last Admin: 09/26/18 08:23 Dose: 3 ml Aspirin (Aspirin 81 Mg Chewable Tablet) 81 mg PO DAILY TONI Stop: 10/24/18 13:59 Last Admin: 09/26/18 11:27 Dose: 81 mg Atorvastatin Calcium (Lipitor 40 Mg Tablet) 40 mg PO QHS TONI Stop: 12/21/18 21:59 Last Admin: 09/25/18 21:19 Dose: 40 mg Carbidopa/Levodopa (Sinemet 25-100 Mg Tablet) 1 tab PO TID [facility] Stop: 10/24/18 00:14 Last Admin: 09/26/18 11:28 Dose: 1 tab Dextrose (Dextrose Inj 50% Syringe (25 Gm/50 Ml)) 25 gm IV PRN PRN; Protocol PRN Reason: PER PROTOCOL Stop: 10/24/18 00:03 Dextrose (Dextrose Inj 50% Syringe (25 Gm/50 Ml)) 12.5 gm IV PRN PRN; Protocol PRN Reason: FOR BG 50-69 IN ALERT PATIENT Stop: 10/24/18 00:03 Fluticasone Propionate (Flonase Nasal Bartlett 50 Mcg/Bartlett 16 Gm) 2 spray NASL Q12 [facility] Stop: 10/24/18 09:59 Last Admin: 09/26/18 11:27 Dose: 2 spr Glucagon (Glucagen Inj 1 Mg Vial) 1 mg IM PRN PRN; Protocol PRN Reason: Evaluate for BG < 70 Stop: 10/24/18 00:03 Glucose (Glutose 40% Gel 15 Gm Tube) 15 gm PO PRN PRN; Protocol PRN Reason: FOR BG 50-69 IN ALERT PATIENT Stop: 10/24/18 00:03 Glucose (Glutose 40% Gel 15 Gm Tube) 30 gm PO PRN PRN; Protocol PRN Reason: FOR BG < 50 IN ALERT PATIENT Stop: 10/24/18 00:03 Guaifenesin (Robitussin Syrup 200 Mg/10 Ml Ud Cup) 200 mg PO Q4HP PRN PRN Reason: COUGH Stop: 10/24/18 00:03 Hydralazine HCl (Apresoline Inj/Pf 20 Mg/1 Ml Sdv) 10 mg IV Q6HP PRN PRN Reason: Sbp>160 Stop: 10/24/18 00:02 Piperacillin Sod/Tazobactam (Sod 3.375 gm/ Sodium Chloride) 100 mls @ 200 mls/ hr IV Q6 [facility] Stop: 10/01/18 05:59 Last Admin: 09/26/18 12:38 Dose: Not Given Vancomycin HCl 750 mg/ (Dextrose) 250 mls @ 166.667 mls/hr IV Q12 [facility] Stop: 10/01/18 20:59 Last Admin: 09/26/18 11:24 Dose: Not Given Influenza Virus Vaccine Quadrival (Fluarix Adlt Quad Vac 0.5 Ml Syr) 0.5 ml IM .DISCHARGE PRN PRN Reason: THIS MED IS NOT "PRN" Stop: 10/24/18 02:40 Insulin Human Lispro (Humalog Insulin 100 Unit/1 Ml 3 Ml Vial) 0 - 12 unit SUBCUT ACP PRN; Protocol PRN Reason: PER PROTOCOL Stop: 10/24/18 00:03 Last Admin: 09/25/18 23:28 Dose: 6 unit Rivaroxaban (Xarelto 10 Mg Tablet) 20 mg PO WSUPPER [facility] Stop: 10/24/18 16:59 Last Admin: 09/25/18 17:36 Dose: 20 mg Sodium Chloride (Saline Flush 2.5 Ml Monoject Prefil Syrin) 2.5 ml IV Q8 [facility] Stop: 10/24/18 05:59 Last Admin: 09/26/18 07:01 Dose: Not Given - Allergies Allergies/Adverse Reactions: No Known Allergies Allergy (Verified 03/01/17 10:37) Hospital Course Hospital Course: Mr. Davila is a 78 year old male who is a long-term long term resident with a history of multiple CVAs, history of PE x 3, history of DVT x 2, coronary artery disease, hypertension, Parkinson's disease with falls, dementia, diabetes and non-O2 dependent COPD. Patient is brought to the emergency room by family members from [facility] after being found with cough and decreased responsiveness. Patient is unable to provide any history, awake and alert in no acute distress. Patient was also apparently noted to be aphasic from the nursing facility. He was found to have leukocytosis of 20,000, and right lower infiltrate suggestive of pneumonia. He was admitted for HCAP. CT head showed old left sided infarct but MRI did reveal evidence of a small acute left sided infarct. He had mildly elevated AST and ALT and questionable cholecystitis on US but patient denies any abdominal pain. Abdominal exam was also completely unremarkable. Clinically, he does not appear to have cholecystitis. AST and ALT did normalize on day of discharge. He was started on broad spectrum IV antibiotics for HCAP. He did clinically improve and on the 2nd day was more verbal and came back to his baseline (only oriented to person from dementia but coherent to yes/no questions). He will be switched to Levaquin PO for 5 more days. Per daughter and , patient is supposed to be on Xarelto indefinitely for his history of multiple/recurrent PEs and DVTs but it is not his medication list. [place] was contacted and reported that patient was first received in March 2017 and was on Xarelto but appears Xarelto was discontinued in October for no clear reason. Family denies any history of GI bleed. Patient is not able to ambulate at [facility] due to his Parkinson's, deficits from previous CVAs and dementia. Discussed in length the risks including bleeding and benefits of continuing Xarelto and family feels strongly he should be continued on it. Xarelto will be resumed as patient does have indication for it due to history of recurrent and multiple PEs, DVTs and CVAs. Addendum: Apparently, patient had fall risks at [facility] hence his Xarelto was previously discontinued. Risks of bleeding was also discussed with and daughter who both said that he is not a fall risk now as he is almost always bed-bound and that they'd rather have the Xarelto continued when he gets discharged. Physical Exam Vital Signs: Temp Pulse Resp BP Pulse Ox 97.7 F 65 16 134/91 H 94 09/26/18 07:51 09/26/18 08:23 09/26/18 08:23 09/26/18 07:51 09/26/18 08:23 Intake & Output 09/25/18 09/26/18 09/27/18 06:59 06:59 06:59 Intake Total 2724 1225 100 Output Total 675 600 Balance 2049 625 100 Weight 147 lb 4.301 oz 149 lb 14.629 oz General appearance: PRESENT: no acute distress, well-developed, well-nourished Head exam: PRESENT: atraumatic, normocephalic Eye exam: PRESENT: conjunctiva pink, EOMI, PERRLA. ABSENT: scleral icterus Ear exam: PRESENT: normal external ear exam Mouth exam: PRESENT: moist, tongue midline Neck exam: ABSENT: carotid bruit, JVD, lymphadenopathy, thyromegaly Respiratory exam: PRESENT: clear to auscultation jim. ABSENT: rales, rhonchi, wheezes Cardiovascular exam: PRESENT: RRR. ABSENT: diastolic murmur, rubs, systolic murmur Pulses: PRESENT: normal dorsalis pedis pul GI/Abdominal exam: PRESENT: normal bowel sounds, soft. ABSENT: distended, guarding, mass, organolmegaly, rebound, tenderness Rectal exam: PRESENT: deferred Neurological exam: PRESENT: alert, awake, oriented to person, motor sensory deficit - 4/5 motor strength on the right arm Results Laboratory Results: 09/26/18 04:52 09/25/18 17:18 09/25/18 09/25/18 09/26/18 16:10 17:18 04:52 WBC 10.8 H RBC 4.33 L Hgb 11.8 L Hct 35.0 L MCV 81 MCH 27.1 MCHC 33.6 RDW 14.6 H Plt Count 246 Seg Neutrophils % 86.5 H Lymphocytes % 6.7 L Monocytes % 4.1 Eosinophils % 2.0 Basophils % 0.7 Absolute Neutrophils 9.3 H Absolute Lymphocytes 0.7 Absolute Monocytes 0.4 Absolute Eosinophils 0.2 Absolute Basophils 0.1 Sodium Cancelled 140.7 Potassium Cancelled 3.9 Chloride Cancelled 104 Carbon Dioxide Cancelled 26 Anion Gap Cancelled 11 BUN Cancelled 21 H Creatinine Cancelled 0.80 Est GFR ( Amer) Cancelled > 60 Est GFR (Non-Af Amer) Cancelled > 60 Glucose Cancelled 278 H Calcium Cancelled 7.9 L Impressions: Chest X-Ray 09/23/18 00:00 IMPRESSION: NO ACUTE RADIOGRAPHIC FINDING IN THE CHEST. Head CT 09/23/18 17:49 IMPRESSION: MICROVASCULAR ISCHEMIA AND GENERALIZED ATROPHY. NO ACUTE IMAGING FINDINGS IN THE BRAIN. OLD INFARCTS ON THE LEFT SIDE RELATING BACK TO THE STUDIES THAT WERE DONE IN FEBRUARY 2017. EVIDENCE OF ACUTE STROKE: NO. Chest CT 09/23/18 21:09 IMPRESSION: Mild right basilar pneumonia/atelectasis. Mild pericholecystic inflammatory changes are suspected, Although this may be due to respiratory artifact. Correlate clinically and follow-up ultrasound can be performed if cholecystitis is of clinical concern. Abdomen Ultrasound 09/23/18 22:18 IMPRESSION: Gallbladder wall thickening but without evidence of shadowing gallstones or pericholecystic fluid. Findings are ambiguous for acute cholecystitis. Head MRI 09/24/18 11:21 IMPRESSION: 1. There are small foci of diffusion restriction in the left MCA watershed, more conspicuous posteriorly and in the vicinity of a previously seen large watershed infarction, consistent with small recurrent watershed infarcts. 2. Left watershed encephalomalacia in keeping with previously demonstrated large left hemispheric watershed infarction. 3. Advanced small vessel white matter disease and global volume loss. EVIDENCE OF ACUTE STROKE: YES.
[2018-09-26 13:38] LABS: ALANINE AMINOTRANSFERASE 27 U/L (21-72); ALBUMIN 2.4 g/dL (3.5-5.0); ALKALINE PHOSPHATASE 239 U/L (38-126); ANION GAP 12 (5-19); ASPARTATE AMINO TRANSFERASE 55 U/L (17-59); BILIRUBIN,DIRECT 0.4 mg/dL (0.0-0.4); BILIRUBIN,TOTAL 0.8 mg/dL (0.2-1.3); BLOOD UREA NITROGEN 18 mg/dL (7-20); CALCIUM 7.8 mg/dL (8.4-10.2); CARBON DIOXIDE 24 mmol/L (22-30); CHLORIDE 105 mmol/L (98-107); GLUCOSE 205 mg/dL (75-110); POTASSIUM 3.5 mmol/L (3.6-5.0); SODIUM 140.6 mmol/L (137-145); TOTAL PROTEIN 5.4 g/dL (6.3-8.2)
[2018-09-26] MEDS ORDERED: NA PHOS,M-B/NA PHOS,DI-BA (ADULT) 133 ML ENEMA PR ONE (16:15)
[2018-09-26] MEDS: INSULIN LISPRO 100 UNIT/ML 3 ML VIAL SUBCUT PRN (17:37)
[2018-09-26] MEDS: RIVAROXABAN 10 MG TABLET PO SCH (17:38)
[2018-09-26 17:49] VITALS: BP 125/67
[2018-09-26] MEDS ORDERED: LEVOFLOXACIN 500 MG TABLET PO ONE (19:00)
== END 2018-09-26 18:18 | DRG 64 ==
LOC: ER 16:51 → EH 09-24 00:21 → 3S 09-24 02:09
PROVIDERS: ADMIT Internal Medicine; ATTEND Internal Medicine
DX: I63.89 Other cerebral infarction (principal); J18.9 Pneumonia, unspecified organism; J44.0 Chronic obstructive pulmonary disease with (acute) lower respiratory infection; R47.01 Aphasia; E87.6 Hypokalemia; I25.10 Atherosclerotic heart disease of native coronary artery without angina pectoris; I10 Essential (primary) hypertension; G20 Parkinson's disease; F03.90 Unspecified dementia, unspecified severity, without behavioral disturbance, psychotic disturbance, mood disturbance, and anxiety; E11.9 Type 2 diabetes mellitus without complications; E78.5 Hyperlipidemia, unspecified; Z79.84 Long term (current) use of oral hypoglycemic drugs; Z79.4 Long term (current) use of insulin; Z79.899 Other long term (current) drug therapy; Z74.01 Bed confinement status; Z86.711 Personal history of pulmonary embolism; Z86.718 Personal history of other venous thrombosis and embolism; Z95.1 Presence of aortocoronary bypass graft; Z86.73 Personal history of transient ischemic attack (TIA), and cerebral infarction without residual deficits
CPT/HCPCS: 36415; 70450; 70551; 71045; 71250; 76705; 80048; 80053; 80307; 81001; 82962; 83036; 83735; 83880; 85025; 87040; 94640; 94667; 94668; 94799; 96361; 96365; 99285; C1758; J1815; J2543; J3370; J3490; J7030; J7060; J7620